=== PATIENT | female | born 1960 | race Caucasian/White ===

== ENCOUNTER → 2020-10-19 10:13 | Outpatient (BNVA) | payer OTHER, SELFPAY | PROVIDERS: PCP Internal Medicine; Visit Provider Urology | DX: N32.81 Overactive bladder (principal) | CPT/HCPCS: 51798; 81002; 99202 ==

== ENCOUNTER → 2020-11-30 12:04 | Outpatient (BNVA) | payer OTHER, SELFPAY | PROVIDERS: PCP Internal Medicine; Visit Provider Urology | DX: N32.81 Overactive bladder (principal) | CPT/HCPCS: 52000; 81002; J0585 ==

== ENCOUNTER → 2020-12-21 14:07 | Outpatient (BNVA) | payer OTHER, SELFPAY | PROVIDERS: PCP Internal Medicine; Visit Provider Urology | DX: Z09 Encounter for follow-up examination after completed treatment for conditions other than malignant neoplasm (principal); N32.81 Overactive bladder | CPT/HCPCS: 51798; 99212 ==

== ENCOUNTER → 2021-04-24 10:13 | Outpatient (BNVA) | payer OTHER, SELFPAY | PROVIDERS: PCP Internal Medicine | DX: N32.81 Overactive bladder (principal) | CPT/HCPCS: 51798; 99212 ==

== ENCOUNTER → 2021-06-12 12:47 | Outpatient (BNVA) | payer OTHER, SELFPAY | PROVIDERS: PCP Internal Medicine; Visit Provider Urology | DX: N32.81 Overactive bladder (principal) | CPT/HCPCS: 52287; J0585 ==

== ENCOUNTER → 2021-06-27 10:06 | Outpatient (BNVA) | payer OTHER, SELFPAY | PROVIDERS: PCP Internal Medicine; Visit Provider Urology | DX: N32.81 Overactive bladder (principal) | CPT/HCPCS: 51798 ==

== ENCOUNTER → 2021-11-29 10:43 | Outpatient (BNVA) | payer OTHER, SELFPAY | PROVIDERS: PCP Internal Medicine; Visit Provider Urology | DX: Z13.89 Encounter for screening for other disorder (principal) ==

== ENCOUNTER → 2022-01-31 10:50 | Outpatient (BNVA) | payer OTHER, SELFPAY | PROVIDERS: PCP Internal Medicine; Visit Provider Urology | DX: N32.81 Overactive bladder (principal) | CPT/HCPCS: 52287 ==

== ENCOUNTER → 2022-06-07 13:36 | Outpatient (BNVA) | payer OTHER, SELFPAY | PROVIDERS: PCP Internal Medicine; Visit Provider Urology | DX: N32.81 Overactive bladder (principal); N39.0 Urinary tract infection, site not specified | CPT/HCPCS: 51798; 99212 ==

== ENCOUNTER 2022-06-07 17:07 | Outpatient (REF) | payer OTHER, SELFPAY | END 2022-06-07 17:08 | disposition home or self-care (01) | LOC: HO.LNP 17:07 | PROVIDERS: Visit Provider Urology | DX: N39.0 Urinary tract infection, site not specified (principal) | CPT/HCPCS: 87086 ==

== ENCOUNTER 2022-07-19 14:49 | Outpatient (REF) | payer OTHER, SELFPAY ==
[2022-07-19 16:54] LABS: Urine Cytology See Pathology rpt
== END 2022-07-19 14:50 | disposition home or self-care (01) ==
LOC: HO.LAB 14:49
PROVIDERS: PCP Internal Medicine; Visit Provider Urology
DX: N32.81 Overactive bladder (principal); N39.0 Urinary tract infection, site not specified
CPT/HCPCS: 51701; 52000; 52287; 88112; J0585

== ENCOUNTER → 2022-08-02 10:51 | Outpatient (BNVA) | payer OTHER, SELFPAY | PROVIDERS: PCP Internal Medicine; Visit Provider Urology | DX: N32.81 Overactive bladder (principal) | CPT/HCPCS: 51798 ==

== ENCOUNTER → 2022-12-05 10:01 | Outpatient (BNVA) | payer OTHER, SELFPAY | PROVIDERS: PCP Internal Medicine; Visit Provider Urology | DX: N32.81 Overactive bladder (principal) | CPT/HCPCS: 99212 ==

== ENCOUNTER → 2023-01-15 14:36 | Outpatient (BNVA) | payer OTHER, SELFPAY | PROVIDERS: Visit Provider Urology ==

== ENCOUNTER 2023-03-19 14:20 | Outpatient (AMB) | payer OTHER, SELFPAY ==
--- NOTE | 2023-03-19 14:47 | MHC.OFFVIS ---
Intake Intake Visit Reasons: Cysto/Botox Injection Intake Note: Patient is present for Cystoscopy and Botox Injections Urology Med: Tolterodine Antibiotic Allergy:None Blood Thinner: None Pharmacy: [facility] Dis[facility] Cystoscope used during Procedure LOT#:[id number] EXP: 08/19/23 Allergies No Known Allergies Allergy (Verified 12/05/22 10:17) HPI HPI Comments History of Present Illness Details Edel is a pleasant female. She is a patient of Dr. Maldonado. She seen for the following urologic conditions - overactive bladder - recurrent UTI Plan for Botox today Tolerated well Did discuss InterStim placement She is considering this Overactive bladder Treatment with prior urologist Had trialed 2 medications - VESIcare, oxybutynin in the past with side effects Had significant side effects with dry mouth and constipation Botox administration - 2018, 12/08, 06/10, 01/09, 07/11, 03/12 [facility] Medical History Overactive bladder Review of Systems Const Denies chills and Denies fever(s) Card Reports no additional complaints and Denies syncope Resp Denies cough GI Denies abdominal pain and Denies heartburn Reports as per HPI and Denies change in libido Neuro Denies syncope Psych Denies change in libido Endo Denies change in libido Physical Exam Const General: cooperative, healthy appearing, comfortable and no acute distress Orientation/consciousness: patient oriented x3 HEENT Face and sinus: Yes normal facial exam Mouth: moist mucous membranes Neck Neck: Yes normal visual inspection, Yes full ROM and Yes trachea midline Chest Chest palpation & inspection: normal inspection of the chest Resp Effort & Inspection: normal respiratory effort, able to speak in complete sentences and no respiratory distress GI Inspection: Yes normal to inspection Back/Spine/Pelvis Cervical Spine: normal cervical lordosis Thoracic/Lumbar Spine: thoracic and lumbar spine normal to inspection Skin General skin exam: no rashes or lesions noted Neuro General: patient oriented x3, gait normal, tone normal and moves all extremities Extrem General: Yes normal to inspection and Yes capillary refill normal Office Procedures Cystoscopy Consent Discussed risk and benefit or proposed procedure with the patient. Information consent for procedure given to the patient. Discussed technical aspects, risks, benefits and alternatives in full. Addressed all of the patient's questions and concerns regarding the procedure. The patient demonstrated knowledge and understanding. They wish to proceed with this procedure. Preparation The patient was prepped in the usual manner. A certified legal investigator was present and in the room. Genitalia was prepped with betadine solution in a sterile manner. Lidocaine Jelly 2% was placed into the urethra and 16Fr flexible Olympus cystoscope was inserted into the meatus after adequate lubrication. Procedure Cystoscopy performed with 16 Bahamian cystoscope. Bladder had been prepped with lidocaine and lidocaine jelly placement 15 minutes prior to procedure. Antibiotics were administrated for 2 days prior to procedure. UA has been performed and shows no evidence of infection. Bladder was emptied of urine. Bladder was refilled. Using 100 units of Botox mixed in 10 cc of normal saline injections were placed at the back wall of the bladder. 0.5cc placed at each injection site. Injections were placed in a grid 5 across and 4 high. Injections were placed from the inferior to superior position. Trabeculations on the bladder wall were targeted if present. Procedure was tolerated well. 2 week follow-up for [place] 76358-Xgwlpnimn of non-indwelling bladder catheter 97407 - Botox Injection, urethra or bladder DISPOSABLE SCOPE URO-N NEEDLE SCOPE Procedure code (CPT) selection complete Office Meds lidocaine HCl 2 % mucosal jelly in applicator Performing Provider: Sesar Dixon MD Per[place] [facility] Administered by: Nettie Freeman RN on 03/19/23 15:04 Dose Route Admin Location Dispensed Lot Number Expiration Date [facility] Corporate Development Analyst 10 mL intra-urethral 10 mL onabotulinumtoxinA 100 unit solution for injection Performing Provider: Sesar Dixon MD Performing Location: [facility] Administered by: Nettie Freeman RN on 03/19/23 15:04 Dose Route Admin Location Dispensed Lot Number Expiration Date [place] [employer] Analyst 100 unit transurethral 1 ea Comments: administered by DR Dixon naproxen 500 mg tablet Performing Provider: Sesar Dixon MD Performing Location: [facility] Administered by: Nettie Freeman RN on 03/19/23 15:04 Dose Route Admin Location Dispensed Lot Number Expiration Date [place] [employer]st 500 mg PO 1 tab Results AMB Urinalysis, Automated UA Leukoctes 500 Fabi/uL Last Edit by IRWIN Best on 03/19/23 15:08 UA Nitrite Negative Last Edit by Hanane Severino, RMA on 03/19/23 15:08 UA Urobilinogen 0.2 mg/dL Last Edit by Hanane Severino, RMA on 03/19/23 15:08 UA Protein 15 mg/dL Last Edit by Hanane Severino, RMA on 03/19/23 15:08 UA pH 6.0 Last Edit by Hanane Severino, RMA on 03/19/23 15:08 UA Blood 25 Gallo/uL Last Edit by Hanane Severino, RMA on 03/19/23 15:08 UA Specific [place] 1.015 Last Edit by Hanane Severino, RMA on 03/19/23 15:08 UA Ketone Negative Last Edit by Hanane Severino, RMA on 03/19/23 15:08 UA Bilirubin 0 mg/dL Last Edit by Hanane Severino, RMA on 03/19/23 15:08 UA Glucose 0 mg/dL Last Edit by Hanane Severino, RMA on 03/19/23 15:08 Results Reviewed Results Reviewed: Laboratory Last Values Urine pH (Auto) 6.0 03/19/23 14:54 Specific [place] (Auto) 1.015 03/19/23 14:54 Urine Protein (Auto) 15 mg/dL 03/19/23 14:54 Glucose (UA)(Auto) 0 mg/dL 03/19/23 14:54 Urine Ketones (Auto) Negative 03/19/23 14:54 Urine Blood (Auto) 25 Gallo/uL 03/19/23 14:54 Urine Nitrite (Auto) Negative 03/19/23 14:54 Urine Bilirubin (Auto) 0 mg/dL 03/19/23 14:54 Urine Urobilinogen (Auto) 0.2 mg/dL 03/19/23 14:54 Leukocyte Esterase (Auto) 500 Fabi/uL 03/19/23 14:54 Assessment & Plan Assessment & Plan (1) Overactive bladder: Comment: Response to combination oral medications and Botox Code(s): N32.81 - Overactive bladder Plan Botox Orders: Orders AMB Cystoscopy 03/19/23 N32.81 - Overactive bladder AMB Urinalysis Automated 03/19/23 Z13.9 - Encounter for screening, unspecified Patient Instructions: Imaging studies, laboratory and physical exam results were discussed and reviewed in detail. No major barriers to patient understanding were identified. An opportunity to ask questions regarding the treatment plan was provided. All questions were answered. The patient expressed understanding and agreement with the above treatment plan. The patient is aware they should contact our office by phone for worsening of their current condition or the appearance of new urologic symptoms. Compliance is encouraged with any medications and followup testing that is ordered. It is a privilege to participate in the urologic care of your patient. If you have any questions or concerns regarding treatment for the above conditions, or other urologic issues, please do not hesitate to contact me. The office telephone contact is [phone]. This note is constructed using voice recognition software. While every effort has been made to ensure accuracy life trainer errors may have been included. Yours sincerely, Dr eSsar Dixon MD, [facility] - Urology Providers of Expert, Compassionate Care for the Genitourinary System Coding Level of Care Code Est Pt Level 3 (85439) Diagnoses Overactive bladder N32.81 CPT Codes Cystoscopy - CPT: 36565-Jzrajmfoq of non-indwelling bladder catheter ([id number]) Cystoscopy - CPT: 03707 - Botox Injection, urethra or bladder ([id number]) Cystoscopy - CPT: DISPOSABLE SCOPE URO-N NEEDLE SCOPE ([id number])
== END 2023-03-19 15:43 | disposition home or self-care (01) ==
PROVIDERS: PCP Internal Medicine; Visit Provider Urology
DX: Z13.9 Encounter for screening, unspecified (principal); N32.81 Overactive bladder
CPT/HCPCS: 52287

== ENCOUNTER → 2023-03-19 14:20 | Outpatient (BNVA) | payer OTHER, SELFPAY | PROVIDERS: PCP Internal Medicine; Visit Provider Urology | DX: N32.81 Overactive bladder (principal) | CPT/HCPCS: 52287; 81003; C1747; J0585 ==

== ENCOUNTER → 2023-04-02 08:51 | Outpatient (BNVA) | payer OTHER, SELFPAY | PROVIDERS: PCP Internal Medicine; Visit Provider Urology | DX: N32.81 Overactive bladder (principal) | CPT/HCPCS: 51798 ==

== ENCOUNTER 2023-08-15 08:56 | Outpatient (AMB) | payer OTHER, SELFPAY ==
--- NOTE | 2023-08-15 09:12 | A.OFFVIS_ITS ---
Intake Intake Visit Reasons: 4m/botox(PA Set) Intake Note: Patient is Present for Cystoscopyn with botox injections Urology Med: Tolterodine, Botox Injection 100 units Antibiotic Allergy: None Blood Thinner: None URO- N Cystoscope Injection lot: [id number] exp: 08/18/2025 Allergies No Known Allergies Allergy (Verified 12/05/22 10:17) HPI HPI Comments History of Present Illness Details Edel is a pleasant female. She is a patient of Dr. Maldonado. She seen for the following urologic conditions - overactive bladder - recurrent UTI Plan for Botox today Tolerated well Has taken antibiotics Discussed possible InterStim trial Would need to occur when Botox has tailed off Overactive bladder Treatment with prior urologist Had trialed 2 medications - VESIcare, oxybutynin in the past with side effects Had significant side effects with dry mouth and constipation Botox administration - 2018, 12/08, 06/10, 01/09, 07/11, 03/12, 08/13 [facility] Medical History Overactive bladder Review of Systems Const Denies chills and Denies fever(s) Card Reports no additional complaints and Denies syncope Resp Denies cough GI Denies abdominal pain and Denies heartburn Reports as per HPI and Denies change in libido Neuro Denies syncope Psych Denies change in libido Endo Denies change in libido Physical Exam Const General: cooperative, healthy appearing, comfortable and no acute distress Orientation/consciousness: patient oriented x3 HEENT Face and sinus: Yes normal facial exam Mouth: moist mucous membranes Neck Neck: Yes normal visual inspection, Yes full ROM and Yes trachea midline Chest Chest palpation & inspection: normal inspection of the chest Resp Effort & Inspection: normal respiratory effort, able to speak in complete sentences and no respiratory distress GI Inspection: Yes normal to inspection Back/Spine/Pelvis Cervical Spine: normal cervical lordosis Thoracic/Lumbar Spine: thoracic and lumbar spine normal to inspection Skin General skin exam: no rashes or lesions noted Neuro General: patient oriented x3, gait normal, tone normal and moves all extremities Extrem General: Yes normal to inspection and Yes capillary refill normal Office Procedures Cystoscopy Consent Discussed risk and benefit or proposed procedure with the patient. Information consent for procedure given to the patient. Discussed technical aspects, risks, benefits and alternatives in full. Addressed all of the patient's questions and concerns regarding the procedure. The patient demonstrated knowledge and understanding. They wish to proceed with this procedure. Preparation The patient was prepped in the usual manner. A strategy lead was present and in the room. Genitalia was prepped with betadine solution in a sterile manner. Lidocaine Jelly 2% was placed into the urethra and 16Fr flexible Olympus cystoscope was inserted into the meatus after adequate lubrication. Procedure Cystoscopy performed with 16 Bhutanese cystoscope. Bladder had been prepped with lidocaine and lidocaine jelly placement 15 minutes prior to procedure. Antibiotics were administrated for 2 days prior to procedure. UA has been performed and shows no evidence of infection. Bladder was emptied of urine. Bladder was refilled. Using 100 units of Botox mixed in 10 cc of normal saline injections were placed at the back wall of the bladder. 0.5cc placed at each injection site. Injections were placed in a grid 5 across and 4 high. Injections were placed from the inferior to superior position. Trabeculations on the bladder wall were targeted if present. Procedure was tolerated well. 2 week follow-up for PVR 12 fr straight cath used to drain bladder and instill 20 mls lidocaine gel, 5 mls lidocaine 2% and 20 mls bupivicaine .50 % botox instilled by Dr Dixon [id number]-Kpyakclmj of temporary indwelling bladder catheter, simple 63085-Rfcwlrkkja 31518 - Botox Injection, urethra or bladder DISPOSABLE SCOPE URO-N NEEDLE SCOPE Procedure code (CPT) selection complete Office Meds lidocaine HCl 2 % mucosal jelly in applicator Performing Provider: Sesar Dixon MD Performing Location: [facility] Administered by: Nettie Cheatham RN on 08/15/23 09:33 Dose Route Admin Location Dispensed Lot Number Expiration Date [facility] Supervisor Paint Roller Covers 10 mL intra-urethral 20 mL onabotulinumtoxinA 100 unit solution for injection Performing Provider: Sesar Dixon MD Performing Location: [facility] Administered by: Nettie Cheatham RN on 08/15/23 09:33 Dose Route Admin Location Dispensed Lot Number Expiration Date [facility] Supervisor [employer] Roller Covers 100 unit transurethral 1 ea Comments: instilled by Dr Dixon naproxen 500 mg tablet Performing Provider: Sesar Dixon MD Performing Location: [facility] Administered by: Nettie Cheatham RN on 08/15/23 09:33 Dose Route Admin Location Dispensed Lot Number Expiration Date [facility] Supervisor [employer] Rol[employer]vers 500 mg PO 1 tab Results AMB Urinalysis, Automated UA Leukoctes 500 Fabi/uL Last Edit by Hanane Severino Sarika on 08/15/23 09:38 UA Nitrite Negative Last Edit by Hanane Severino [facility] on 08/15/23 09:38 UA Urobilinogen 0.2 mg/dL Last Edit by Hanane Severino [facility] on 08/15/23 09:3 8 UA Protein 0 mg/dL Last Edit by Hanane Severino A on 08/15/23 09:38 UA pH 6.0 Last Edit by Hanane Severino [facility] on 08/15/23 09:38 UA Blood 25 Gallo/uL Last Edit by Hanane Severino [facility] on 08/15/23 09:38 UA Specific [place] 1.010 Last Edit by Hanane Severino [facility] on 08/15/23 09: 38 UA Ketone Negative Last Edit by Hanane Severino [facility] on 08/15/23 09:38 UA Bilirubin 0 mg/dL Last Edit by Hanane Severino [facility] on 08/15/23 09:38 UA Glucose 0 mg/dL Last Edit by Hanane Severino [facility] on 08/15/23 09:38 Results Reviewed Results Reviewed: Laboratory Last Values Urine pH (Auto) 6.0 08/15/23 09:23 Specific [place] (Auto) 1.010 08/15/23 09:23 Urine Protein (Auto) 0 mg/dL 08/15/23 09:23 Glucose (UA)(Auto) 0 mg/dL 08/15/23 09:23 Urine Ketones (Auto) Negative 08/15/23 09:23 Urine Blood (Auto) 25 Gallo/uL 08/15/23 09:23 Urine Nitrite (Auto) Negative 08/15/23 09:23 Urine Bilirubin (Auto) 0 mg/dL 08/15/23 09:23 Urine Urobilinogen (Auto) 0.2 mg/dL 08/15/23 09:23 Leukocyte Esterase (Auto) 500 Fabi/uL 08/15/23 09:23 Assessment & Plan Assessment & Plan (1) Overactive bladder: Comment: Response to combination oral medications and Botox Code(s): N32.81 - Overactive bladder (2) Recurrent UTI: Code(s): N39.0 - Urinary tract infection, site not specified Plan Botox completed Orders: Orders AMB Cystoscopy Today N32.81 - Overactive bladder AMB Urinalysis Automated Today Z13.9 - Encounter for screening, unspecified Patient Instructions: Imaging studies, laboratory and physical exam results were discussed and reviewed in detail. No major barriers to patient understanding were identified. An opportunity to ask questions regarding the treatment plan was provided. All questions were answered. The patient expressed understanding and agreement with the above treatment plan. The patient is aware they should contact our office by phone for worsening of their current condition or the appearance of new urologic symptoms. Compliance is encouraged with any medications and followup testing that is ordered. It is a privilege to participate in the urologic care of your patient. If you have any questions or concerns regarding treatment for the above conditions, or other urologic issues, please do not hesitate to contact me. The office telephone contact is [phone]. This note is constructed using voice recognition software. While every effort has been made to ensure accuracy yarn washer errors may have been included. Yours sincerely, Dr Sesar Dixon MD, [facility] - Urology Providers of Expert, Compassionate Care for the Genitourinary System Coding Level of Care Code Est Pt Level 3 (34576) Diagnoses Overactive bladder N32.81 Recurrent UTI N39.0 CPT Codes Cystoscopy - CPT: 12463-Gicjxiytq of temporary indwelling bladder catheter, simple ([id number]) Cystoscopy - CPT: 46310-Jybjfkcgmk ([id number]) Cystoscopy - CPT: 09122 - Botox Injection, urethra or bladder ([id number])
== END 2023-08-15 10:05 | disposition home or self-care (01) ==
PROVIDERS: PCP Internal Medicine; Visit Provider Urology
DX: N32.81 Overactive bladder (principal); N39.0 Urinary tract infection, site not specified; Z13.9 Encounter for screening, unspecified
CPT/HCPCS: 52287; 99213

== ENCOUNTER → 2023-08-15 08:56 | Outpatient (BNVA) | payer OTHER, SELFPAY | PROVIDERS: PCP Internal Medicine; Visit Provider Urology | DX: N32.81 Overactive bladder (principal); N39.0 Urinary tract infection, site not specified | CPT/HCPCS: 52287; 81003; 99212; J0585 ==

== ENCOUNTER → 2023-09-02 09:23 | Outpatient (BNVA) | payer OTHER, SELFPAY | PROVIDERS: PCP Internal Medicine; Visit Provider Urology | DX: N32.81 Overactive bladder (principal); N39.0 Urinary tract infection, site not specified | CPT/HCPCS: 51798 ==

== ENCOUNTER 2024-01-02 09:30 | Outpatient (AMB) | payer OTHER, SELFPAY ==
--- NOTE | 2024-01-02 09:50 | A.OFFVIS_ITS ---
Intake Visit Reasons: 4m s/p botox/discuss interstim Intake Note: Patient is Present for PVR/Discuss Interstim Urology Med: Tolterodine Antibiotic Allergy:None Blood Thinner:None Last Bladder Botox Injection: 07/2023 Todays PVR: 0 Patient states that she will like to dicuss Interstim plan vs Botox Injections Court Recording Monitor Required: No Allergies No Known Allergies Allergy (Verified 01/02/24 09:56) HPI Comments Details: Edel is a pleasant female. She is a patient of Dr. Maldonado. She seen for the following urologic conditions - overactive bladder - recurrent UTI Plan for Botox today Tolerated well Has taken antibiotics Discussed possible InterStim trial Would need to occur when Botox has tailed off Overactive bladder Treatment with prior urologist Had trialed 2 medications - VESIcare, oxybutynin in the past with side effects Had significant side effects with dry mouth and constipation Botox administration - 2018, 12/08, 06/10, 01/09, 07/11, 03/12, 08/13 [facility] Medical History Overactive bladder Review of Systems Const Denies chills and Denies fever(s) Card Reports no additional complaints and Denies syncope Resp Denies cough GI Denies abdominal pain and Denies heartburn Reports as per HPI and Denies change in libido Neuro Denies syncope Psych Denies change in libido Endo Denies change in libido Physical Exam Const General: cooperative, healthy appearing, comfortable and no acute distress Orientation/consciousness: patient oriented x3 HEENT Face and sinus: Yes normal facial exam Mouth: moist mucous membranes Neck Neck: Yes normal visual inspection, Yes full ROM and Yes trachea midline Chest Chest palpation & inspection: normal inspection of the chest Resp Effort & Inspection: normal respiratory effort, able to speak in complete sentences and no respiratory distress GI Inspection: Yes normal to inspection Back/Spine/Pelvis Cervical Spine: normal cervical lordosis Thoracic/Lumbar Spine: thoracic and lumbar spine normal to inspection Skin General skin exam: no rashes or lesions noted Neuro General: patient oriented x3, gait normal, tone normal and moves all extremities Extrem General: Yes normal to inspection and Yes capillary refill normal Office Procedures Post Void Residual Post Residual Void Post Void Residual (PVR): 0 95476-Eocr Void Residual by ultrasound Assessment & Plan Assessment & Plan (1) Overactive bladder: Comment: Response to combination oral medications and Botox Code(s): N32.81 - Overactive bladder Category: Medical (2) Recurrent UTI: Code(s): N39.0 - Urinary tract infection, site not specified Category: Medical Plan Risks, benefits and alternatives to therapy were discussed. These include but are not limited to infection, bleeding, damage to local organs and tissues, need for further interventions. Anesthetic risks regarding cardiac arrhythmia, blood clots, and potential mortality were discussed. The patient understands the typical recovery time and the outpatient nature of the procedure. After consideration of these risks the patient gives full informed consent and they wish to move ahead with the procedure. InterStim trial Orders: Orders AMB Post Void Residual by ultrasound Today N32.81 - Overactive bladder Patient Instructions: Imaging studies, laboratory and physical exam results were discussed and reviewed in detail. No major barriers to patient understanding were identified. An opportunity to ask questions regarding the treatment plan was provided. All questions were answered. The patient expressed understanding and agreement with the above treatment plan. The patient is aware they should contact our office by phone for worsening of their current condition or the appearance of new urologic symptoms. Compliance is encouraged with any medications and followup testing that is ordered. It is a privilege to participate in the urologic care of your patient. If you have any questions or concerns regarding treatment for the above conditions, or other urologic issues, please do not hesitate to contact me. The office telephone contact is [phone]. This note is constructed using voice recognition software. While every effort has been made to ensure accuracy bag liner errors may have been included. Yours sincerely, Dr Sesar Dixon MD, [facility] - Urology Providers of Expert, Compassionate Care for the Genitourinary System Coding Level of Care Code Est Pt Level 3 (39807) Diagnoses Overactive bladder N32.81 Recurrent UTI N39.0 CPT Codes Post Residual Void - PVR CPT Code: 00107-Zdea Void Residual by ultrasound ([id number])
== END 2024-01-02 10:47 | disposition home or self-care (01) ==
PROVIDERS: PCP Internal Medicine; Visit Provider Urology
DX: N32.81 Overactive bladder (principal); N39.0 Urinary tract infection, site not specified
CPT/HCPCS: 99213

== ENCOUNTER → 2024-01-02 09:30 | Outpatient (BNVA) | payer OTHER, SELFPAY | PROVIDERS: PCP Internal Medicine; Visit Provider Urology | DX: N32.81 Overactive bladder (principal); N39.0 Urinary tract infection, site not specified | CPT/HCPCS: 51798; 99212 ==

== ENCOUNTER 2024-03-04 12:23 | Outpatient (REF) | payer OTHER, SELFPAY ==
--- NOTE | 2024-03-04 15:04 | P.OP_ITS ---
Operative Note Operative Note Date of Service: 03/04/24 Narrative: PreOperative Diagnosis: 1) Overactive bladder with urinary urgency and frequency with incontinence (N39.41, R35.0) Post Operative Diagnosis: 1) Overactive bladder with urinary urgency and frequency with incontinence (N39.41, R35.0) Procedure: 1.) Percutaneous implantation of neurostimulator electrode array including image guidance - performed bilateral - left and right foramen Surgeon: Dr Sesar Dixon Anesthesia: Local anesthetic Indications for procedure: - Failed multiple (more than 2) anticholinergic medications in attempt to manage urinary urgency and frequency Procedure: After informed consent was verified the patient was brought to the interventional radiology suite. The patient was placed in a prone position and prepped and draped in a sterile fashion. Safety pause time-out was performed. Using the C-arm and Finder needle the S3 foramen exiting from the pelvic arch was marked horizontally from left to right as our horizontal marker. The left and right medial aspect of foramen were highlighted and aligned with the finder needle in a vertical fashion. Lines were marked. The intersection of these lines marked the entry point on the skin of the medial aspect of the left and right S3 foramen. Local anesthetic was infiltrated along the vertical aspect on both sides and through tissue to spine. The finder needle was inserted initially into the right targeted foramen. Imaging was performed in AP and lateral fashion. The needle was shown to into the S4 foramen. The needle was repositioned and entry into the right S3 foramen was confirmed. The software test developer was attached and assessed for placement with Martinez response and toe movement. The right side did show some response however at high impedance. A 2nd needle was placed for entry into the left S3 foramen. The software test developer was attached and assessed for placement with Martinez response and toe movement. Good responses were confirmed at low amperage (under 1A) on right side. A third needle was placed on left side. It entered left foramen at more vertical angle. qa lead showed good response at low amperage. Starting with the right side. The internal introducer from the needle was removed and the software test developer placed. The needle was carefully removed and imaging used to confirm good placement of software test developer. This procedure was repeated on the left side. The two test leads were then attached to the test generator and appropriate dressing was applied in order to maintain integrity for the duration of the outpatient test sequence. Leads checked in recovery. Left lead 0.4 mA and right 0.8 mA CPT 88585, plus 00221-05 for second lead placement. Inclusive of image guidance, 12732 - simple programming
== END 2024-03-04 12:24 | disposition home or self-care (01) ==
LOC: HO.RADIR 12:23
PROVIDERS: PCP Internal Medicine; Visit Provider Urology
DX: N39.41 Urge incontinence (principal); R35.0 Frequency of micturition; N32.81 Overactive bladder
CPT/HCPCS: 64561; C1787; C1897

== ENCOUNTER → 2024-03-04 12:23 | Outpatient (BNV) | payer OTHER, SELFPAY | PROVIDERS: PCP Internal Medicine; Visit Provider Urology | DX: N39.41 Urge incontinence (principal); R35.0 Frequency of micturition | CPT/HCPCS: 64561 ==

== ENCOUNTER 2024-03-11 09:44 | Outpatient (AMB) | payer OTHER, SELFPAY ==
--- NOTE | 2024-03-11 09:47 | MHC.OFFVIS ---
Intake Visit Reasons: wire removal after interstim Intake Note: Patient is present for Interstim Wire Removal Urology Med: Tolterodine Antibiotic Allergy: None Blood Thinner: none Ground Support Equipment Mechanic Required: No Accompanied by: Self / Same As Patient Allergies No Known Allergies Allergy (Verified 03/11/24 09:53) HPI Comments Details: Edel is a pleasant female. She is a patient of Dr. Maldonado. She seen for the following urologic conditions - overactive bladder - recurrent UTI Removal InterStim Trial wires new load good result Nocturia x1 Significant improvement with urgency and frequency Leads removed Discussed procedure for Friday Overactive bladder Treatment with prior urologist Had trialed 2 medications - VESIcare, oxybutynin in the past with side effects Had significant side effects with dry mouth and constipation Botox administration - 2018, 12/08, 06/10, 01/09, 07/11, 03/12, 08/13 [facility] Medical History Overactive bladder Review of Systems Const Denies chills and Denies fever(s) Card Reports no additional complaints and Denies syncope Resp Denies cough GI Denies abdominal pain and Denies heartburn Reports as per HPI and Denies change in libido Neuro Denies syncope Psych Denies change in libido Endo Denies change in libido Physical Exam Const General: cooperative, healthy appearing, comfortable and no acute distress Orientation/consciousness: patient oriented x3 HEENT Face and sinus: Yes normal facial exam Mouth: moist mucous membranes Neck Neck: Yes normal visual inspection, Yes full ROM and Yes trachea midline Chest Chest palpation & inspection: normal inspection of the chest Resp Effort & Inspection: normal respiratory effort, able to speak in complete sentences and no respiratory distress GI Inspection: Yes normal to inspection Back/Spine/Pelvis Cervical Spine: normal cervical lordosis Thoracic/Lumbar Spine: thoracic and lumbar spine normal to inspection Skin General skin exam: no rashes or lesions noted Neuro General: patient oriented x3, gait normal, tone normal and moves all extremities Extrem General: Yes normal to inspection and Yes capillary refill normal Assessment & Plan Assessment & Plan (1) Overactive bladder: Comment: Response to combination oral medications and Botox Code(s): N32.81 - Overactive bladder Category: Medical Plan Risks, benefits and alternatives to therapy were discussed. These include but are not limited to infection, bleeding, damage to local organs and tissues, need for further interventions. Anesthetic risks regarding cardiac arrhythmia, blood clots, and potential mortality were discussed. The patient understands the typical recovery time and the outpatient nature of the procedure. After consideration of these risks the patient gives full informed consent and they wish to move ahead with the procedure. InterStim full implant Patient Instructions: Imaging studies, laboratory and physical exam results were discussed and reviewed in detail. No major barriers to patient understanding were identified. An opportunity to ask questions regarding the treatment plan was provided. All questions were answered. The patient expressed understanding and agreement with the above treatment plan. The patient is aware they should contact our office by phone for worsening of their current condition or the appearance of new urologic symptoms. Compliance is encouraged with any medications and followup testing that is ordered. It is a privilege to participate in the urologic care of your patient. If you have any questions or concerns regarding treatment for the above conditions, or other urologic issues, please do not hesitate to contact me. The office telephone contact is [phone]. This note is constructed using voice recognition software. While every effort has been made to ensure accuracy dividend deposit entry clerk errors may have been included. Yours sincerely, Dr Sesar Dixon MD, [facility] - Urology Providers of Expert, Compassionate Care for the Genitourinary System Coding Level of Care Code Est Pt Level 3 (55841) Diagnoses Overactive bladder N32.81
== END 2024-03-11 10:49 | disposition home or self-care (01) ==
PROVIDERS: PCP Internal Medicine; Visit Provider Urology
DX: N32.81 Overactive bladder (principal)
CPT/HCPCS: 99024

== ENCOUNTER → 2024-03-11 09:44 | Outpatient (BNVA) | payer OTHER, SELFPAY | PROVIDERS: PCP Internal Medicine; Visit Provider Urology | DX: R35.1 Nocturia (principal); N32.81 Overactive bladder; Z45.89 Encounter for adjustment and management of other implanted devices | CPT/HCPCS: 99212 ==

== ENCOUNTER 2024-03-15 11:56 | Day surgery (SDC) | payer OTHER, SELFPAY ==
[2024-03-15 12:02] VITALS: BMI 40.0
[2024-03-15 12:28] VITALS: BP 127/86; PULSE 87; RESP 16; TEMP 36.9; O2SAT 97
[2024-03-15] MEDS: Lactated Ringers 1,000 ML 80 ML IVCONT (12:31)
--- NOTE | 2024-03-15 15:38 | P.CONAN_ITS ---
HPI - Anesthesia Eval Consult details Narrative: interstim lead test stage 1 PMFSH Active Problems Active Problems: All Active Problems Recurrent UTI (Acute) Overactive bladder (Acute) Past Medical History Medical History (Updated 03/11/24 @ 14:07 by Basia Eisenberg RN) Family hx total abdominal hysterectomy/bilateral salpingo-oophorectomy Elevated LFTs Arthritis Tobacco abuse Back pain Tonsil asymmetry Greater trochanteric bursitis CKD (chronic kidney disease) Depression Obesity GERD (gastroesophageal reflux disease) HTN (hypertension) Hypercholesteremia Overactive bladder Family History Family history of problems with anesthesia: No Surgical History Surgical History (Updated 03/11/24 @ 14:07 by Basia Eisenberg RN) Hx of tubal ligation Hx of breast surgery H/O colonoscopy History of esophagogastroduodenoscopy (EGD) History of Problems with Anesthesia: Yes (PONV) Social History Social History Patient Tobacco Use Status: Current everyday Tobacco user Cigarettes Per Day: 15 Use of substances other than those prescribed or required for medical reasons: No Have you been hit, kicked, punched, or otherwise hurt by someone within the past year? If so, by whom?: No Advance Directives: No Advance Directives Information Provided: Yes Recently lost weight without trying: No Nutrition Risks: No Nutritional Risk Meds Allergies Allergy/AdvReac Type Severity Reaction Status Date / Time No Known Allergies Allergy Verified 03/15/24 12:09 Active Medications: Current Medications Lactated Ringer's (Lr) 1,000 mls @ 80 mls/hr IVCONT .[id number] [facility] Last Admin: 03/15/24 12:31 Dose: 80 mls/hr Home Medications ?Medication ?Instructions ?Recorded ?Confirmed ?Last Taken ?Type amlodipine 5 mg tablet 5 mg PO DAILY 10/19/20 03/15/24 03/15/24 History atenolol 25 mg tablet 25 mg PO DAILY 10/19/20 03/15/24 03/15/24 History atorvastatin 20 mg tablet 20 mg PO DAILY 10/19/20 03/15/24 03/15/24 History ergocalciferol (vitamin D2) 1,250 1,250 mcg PO QWEEK 10/19/20 Unknown History mcg (50,000 unit) capsule fluticasone propionate 50 1 spray intranasal BID 10/19/20 Unknown History mcg/actuation nasal spray,suspension omeprazole 20 mg capsule,delayed 20 mg PO QAM 10/19/20 03/15/24 03/15/24 History release Exam Height,Weight and Vital Signs: Height 5 ft 3 in Weight 102.512 kg Last Vital Signs Temp 98.5 F 03/15/24 12:28 Pulse 87 03/15/24 12:28 Resp 16 03/15/24 12:28 BP 127/86 03/15/24 12:28 Pulse Ox 97 03/15/24 12:28 O2 Del Method Room Air 03/15/24 12:28 Airway Mallampati Class: II TM Dist: <=3cm Neck ROM: Full Heart: ok Lungs: ok Assessment and Plan Assessment Anesthesia Assessment: Anesthesia Plan Discussed and Chart Reviewed Final Anesthetic Review Family History of Problems with Anesthesia: No History of Problems with Anesthesia: Yes (PONV) NPO: Yes ASA Class: II Final Preanesthetic Review: No Changes in Pt Med Stat, Meds/Allgs Chart Reviewed, Consent Obtained/Reviewed and Anes Risks/Benef Reviewed Patient Risk: Intermediate Procedure Risk: Intermediate Anesthetic Plan Anesthetic Plan: MAC: and Agree w/ Assess. and Plan Disposition: Standard PACU
--- NOTE | 2024-03-15 15:53 | MHC.SHP ---
Pre-Procedural Eval Section A - 24 Hr Update-Section A only Date of Service: 03/15/24 The patient is an INPATIENT: No Changes since office visit: No Cold of Flu in the past 2 weeks, No New Medical Problems, No Changes in Medication and No Patient answered all questions The patient has been examined within 24 hours of the surgical procedure. The History & Physical has been completed within 30 days and I have reviewed it.: Yes Section B - Complete if H&P > 30 days Chief Complaint: Overactive bladder Details of Present Illness: Interstim placement lead and generator on left side Relevant Family History (Specify if Yes): No Relevant Social History: Tobacco Use Present Medications: see Short Stay Collaborative assessment Medical History: Significant History History of Previous Operations: Relevant previous surgery/procedure and date(s) Allergies: Allergies Allergy/AdvReac Type Severity Reaction Status Date / Time No Known Allergies Allergy Verified 03/15/24 12:09 Review of Systems Sugical H&P ROS: Negative: Constitution, Cardiovascular, Respiratory, Neurological, Psychiatric, Hem-Onc, Allergic/Immunologic, Gastrointestinal, Genitourinary, Musculoskeletal, Integumentary, Endocrine and Eyes/Ears/Nose/Throat Exam Surgical H&P Exam: Normal: HEENT, Normal: Heart, Normal: Lungs, Normal: Extremities, Normal: Abdomen, Normal: Skin and Normal: Neurological Plan Diagnosis/Plan: Unchanged (interstim placement) I have reviewed the history and physical and performed a pertinent physical examination on my patient. No changes have occurred unless specified. Time Spent With Patient Time: Total time managing care of this patient today ____ minutes.
--- NOTE | 2024-03-15 17:15 | W.PM.OPN ---
Operative Note Operative Note Date of Service: 03/15/24 Narrative: PreOperative Diagnosis: Overactive bladder with urinary urgency and frequency - N39.41, R35.0 Post Operative Diagnosis: Overactive bladder with urinary urgency and frequency Procedure: 1.) Placement of InterStim lead 2.) Placement of InterStim battery Surgeon: Dr Sesar Dixon Anesthesia: sedation Indications for procedure: Failed multiple oral medications and Botox. Had PNE trial of InterStim with good success. Left side was more effective. Procedure: After informed consent was verified the patient was brought to the operating room. Sedation anesthesia was administered per protocol. The patient was placed in a prone position and prepped and draped in a sterile fashion. Safety pause time-out was performed. Using the C-arm in an AP and lateral view the medial aspect of the S3 left foramen was located and marked on the skin. The medial aspect of the sacral roots was marked using the finder needle. The area was infiltrated with local anesthetic. The finding needle was introduced into the S3 foramen running from a caudad to chordal direction. Initial testing indicated minimal response. A 2nd needle was placed running in more vertical fashion. This had some response. A 3rd needle was placed in in even more vertical fashion and this had very good response to testing. Using the door to door lead generation we could confirm good toe movement and Martinez response. Maximum current was less than 1.0 amps Amp. The internal introducer from the needle was removed and the control lead placed. The finder needle was removed and the dilator sheath introduced. Under fluoroscopic guidance the dilator sheath was advanced till the marker was seen mid point through the sacral bone on the lateral image. The internal cannula from the dilator was removed. The guidewire was removed. The active lead was then introduced through the dilator sheath and advanced so that the 3rd and 4th marked electrodes crossed the internal boundary line of the sacrum. The testing electrode was then hooked up to each of the wire electrodes 0 through 3 and good Martinez and toe response is was seen at low amplitude less than 0.5 Amp for positions 0 and 1, less than 1.0 Amp for positions 2 and 3 amps. This confirmed the clinically relevant position of the live wire. Under live fluoroscopy the introducer sheath was removed deploying the tines of the wire ensuring that the live wire remained in the previously described position. The battery pocket was then created. Packet location was marked running parallel 1 inches below the top of the right sacral bone from AP fluroscopy guidance. Local anesthetic was infiltrated. A 3 inch incision was made and a subcutaneous pocket was developed in the fat approximately 1.5 cm below the surface. The tunneling device was then used to bridge the distance between the sacral vertical incision and the desired location of the battery pocket. The live wire was placed through the tunneling device and brought out into the battery pocket. The sacral incision was washed with water. A battery was connected to the live wire and placed into the subcutaneous pocket. The battery was tested and had positive picking tech and displayed normal impedance on all 4 channels. The battery pocket had been washed with sterile water prior to placement of the battery. Interrupted 3-0 Vicryl sutures were used to close the defect spaces and bring skin edges together. Running 4-0 Monocryl sutures were used to appose skin edges. Incisions were dressed using skin glue followed by Tegaderm dressing. Patient tolerated procedure well was extubated in operating room transferred in stable condition to the recovery area. CPT full device replacement 26821, 52283, 94032, 86673-49
[2024-03-15 17:20] VITALS: BP 143/102; PULSE 68; RESP 16; TEMP 36.3; O2SAT 96
[2024-03-15 17:35] VITALS: BP 139/91; PULSE 63; RESP 18; TEMP 36.3; O2SAT 97
== END 2024-03-15 17:45 | disposition home or self-care (01) ==
PROVIDERS: PCP Internal Medicine; Visit Provider Urology
PROC: (CPT 64590; principal; 2024-03-15 14:10)
DX: N32.81 Overactive bladder (principal); R39.15 Urgency of urination; R35.0 Frequency of micturition; I12.9 Hypertensive chronic kidney disease with stage 1 through stage 4 chronic kidney disease, or unspecified chronic kidney disease; F17.210 Nicotine dependence, cigarettes, uncomplicated; N18.9 Chronic kidney disease, unspecified; Z79.899 Other long term (current) drug therapy; Z98.890 Other specified postprocedural states
CPT/HCPCS: 64590; 64561; A4364; C1767; C1778; C1787; J0131; J0690; J1580; J2250; J2704; J2795; J3010

== ENCOUNTER → 2024-03-15 11:56 | Outpatient (BNV) | payer OTHER, SELFPAY | PROVIDERS: PCP Internal Medicine; Visit Provider Urology | DX: N32.81 Overactive bladder (principal) | CPT/HCPCS: 64561; 64590 ==

== ENCOUNTER 2024-03-23 10:56 | Outpatient (AMB) | payer OTHER, SELFPAY ==
--- NOTE | 2024-03-23 10:53 | A.OFFVIS_ITS ---
Intake Visit Reasons: Interstim follow up Intake Note: Patient is present for INTERSTIM F/U Urology Medication:LIDOCAINE Antibiotic Allergy:NONE Blood Thinner:NONE Manager Of Compensation Required: No Allergies No Known Allergies Allergy (Verified 03/23/24 10:54) Medication List - Last Reconciled 03/23/24 by Sesar Dixon MD amlodipine 5 mg PO DAILY atenolol 25 mg PO DAILY atorvastatin 20 mg PO DAILY ergocalciferol (vitamin D2) 1,250 mcg PO QWEEK fluticasone propionate 50 mcg/actuation 1 spray intranasal BID omeprazole 20 mg PO QAM HPI Comments Details: Edel is a pleasant female. She is a patient of Dr. Maldonado. She seen for the following urologic conditions - overactive bladder - recurrent UTI Telemedicine Evaluation 15 min Consultation NaHere Eduin Video attempted Good response to InterStim Healing well Effective control Power level 1.2 Six-month follow-up office Overactive bladder Treatment with prior urologist Had trialed 2 medications - VESIcare, oxybutynin in the past with side effects Had significant side effects with dry mouth and constipation Botox administration - 2018, 12/08, 06/10, 01/09, 07/11, 03/12, 08/13 [facility] Medical History (Updated 03/11/24 @ 14:07 by Basia Eisenberg RN) Family hx total abdominal hysterectomy/bilateral salpingo-oophorectomy Elevated LFTs Arthritis Tobacco abuse Back pain Tonsil asymmetry Greater trochanteric bursitis CKD (chronic kidney disease) Depression Obesity GERD (gastroesophageal reflux disease) HTN (hypertension) Hypercholesteremia Overactive bladder Surgical History (Updated 03/11/24 @ 14:07 by Basia Eisenberg RN) Hx of tubal ligation Hx of breast surgery H/O colonoscopy History of esophagogastroduodenoscopy (EGD) Social History Patient Tobacco Use Status: Current everyday Tobacco user Cigarettes Per Day: 15 Review of Systems Const Denies chills and Denies fever(s) Card Reports no additional complaints and Denies syncope Resp Denies cough GI Denies abdominal pain and Denies heartburn Reports as per HPI and Denies change in libido Neuro Denies syncope Psych Denies change in libido Endo Denies change in libido Physical Exam Const General: cooperative, healthy appearing, comfortable and no acute distress Orientation/consciousness: patient oriented x3 HEENT Face and sinus: Yes normal facial exam Mouth: moist mucous membranes Neck Neck: Yes normal visual inspection, Yes full ROM and Yes trachea midline Chest Chest palpation & inspection: normal inspection of the chest Resp Effort & Inspection: normal respiratory effort, able to speak in complete sentences and no respiratory distress GI Inspection: Yes normal to inspection Back/Spine/Pelvis Cervical Spine: normal cervical lordosis Thoracic/Lumbar Spine: thoracic and lumbar spine normal to inspection Skin General skin exam: no rashes or lesions noted Neuro General: patient oriented x3, gait normal, tone normal and moves all extremities Extrem General: Yes normal to inspection and Yes capillary refill normal Telehealth Telehealth Telehealth Platform: NaHere Location of provider rendering services: practice address Location of patient: address on file Patient Identification confirmed using: Name, : Yes Telehealth method: video Patient verbally consented to treatment: Yes Patient verbally consented to billing insurance company: Yes Patient informed of any privacy concerns related to visit: Yes Minutes spent on Phone/Video with Pt.: 15 Assessment & Plan Assessment & Plan (1) Recurrent UTI: Code(s): N39.0 - Urinary tract infection, site not specified Category: Medical (2) Overactive bladder: Comment: Response to combination oral medications and Botox Code(s): N32.81 - Overactive bladder Category: Medical Plan Six-month follow-up office Patient Instructions: Imaging studies, laboratory and physical exam results were discussed and reviewed in detail. No major barriers to patient understanding were identified. An opportunity to ask questions regarding the treatment plan was provided. All questions were answered. The patient expressed understanding and agreement with the above treatment plan. The patient is aware they should contact our office by phone for worsening of their current condition or the appearance of new urologic symptoms. Compliance is encouraged with any medications and followup testing that is ordered. It is a privilege to participate in the urologic care of your patient. If you have any questions or concerns regarding treatment for the above conditions, or other urologic issues, please do not hesitate to contact me. The office telephone contact is [phone]. This note is constructed using voice recognition software. While every effort has been made to ensure accuracy mechanic sound technician errors may have been included. Yours sincerely, Dr Sesar Dixon MD, [facility] - Urology Providers of Expert, Compassionate Care for the Genitourinary System Coding Level of Care Code Tele Est Pt Level 3 (07882) Diagnoses Recurrent UTI N39.0 Overactive bladder N32.81
== END 2024-03-23 11:28 | disposition home or self-care (01) ==
LOC: HO.HUSH 10:56
PROVIDERS: PCP Internal Medicine; Visit Provider Urology
DX: N39.0 Urinary tract infection, site not specified (principal); N32.81 Overactive bladder
CPT/HCPCS: 99024

== ENCOUNTER → 2024-03-23 10:56 | Outpatient (BNVA) | payer OTHER, SELFPAY | PROVIDERS: PCP Internal Medicine; Visit Provider Urology ==

== ENCOUNTER 2024-09-21 08:20 | Outpatient (AMB) | payer OTHER, SELFPAY ==
--- NOTE | 2024-09-21 08:26 | A.OFFVIS_ITS ---
Intake Visit Reasons: 6m/OAB(SET) Intake Note: Patient is present for 6 month follow up/OAB Urology Medication:LIDOCAINE Antibiotic Allergy:NONE Blood Thinner:NONE PVR: Allergies No Known Allergies Allergy (Verified 09/21/24 08:27) HPI Comments Details: Edel is a pleasant female. She is a patient of Dr. Maldonado. She seen for the following urologic conditions - overactive bladder - recurrent UTI Six-month follow-up from InterStim placement Has made slight adjustment Having some urge in the morning Discussed dietary triggers Urinary Symptoms Review - Increased urgency to urinate, noted recently. - Urgency primarily occurs in the morning or shortly after waking. - Adjusted bladder device setting up slightly which initially improved symptoms. - Informed sensation indicates device setting too high, so settings adjusted accordingly. - Evaluation showed increased frequency of urination. - Denies any notable nocturnal urgency, suggesting urinary retention overnight. - Discussion of dietary influences, such as caffeine and chocolate, on urinary symptoms. - Previous treatment with Botox was ineffective. Overactive bladder Treatment with prior urologist Had trialed 2 medications - VESIcare, oxybutynin in the past with side effects Had significant side effects with dry mouth and constipation Botox administration - 2018, 12/08, 06/10, 01/09, 07/11, 03/12, 08/13 InterStim placement 04/13 [facility] Medical History Family hx total abdominal hysterectomy/bilateral salpingo-oophorectomy Elevated LFTs Arthritis Tobacco abuse Back pain Tonsil asymmetry Greater trochanteric bursitis CKD (chronic kidney disease) Depression Obesity GERD (gastroesophageal reflux disease) HTN (hypertension) Hypercholesteremia Overactive bladder Surgical History Hx of tubal ligation Hx of breast surgery H/O colonoscopy History of esophagogastroduodenoscopy (EGD) Social History Patient Tobacco Use Status: Current everyday Tobacco user Cigarettes Per Day: 15 Review of Systems Const Denies chills and Denies fever(s) Card Reports no additional complaints and Denies syncope Resp Denies cough GI Denies abdominal pain and Denies heartburn Reports as per HPI and Denies change in libido Neuro Denies syncope Psych Denies change in libido Endo Denies change in libido Physical Exam Const General: cooperative, healthy appearing, comfortable and no acute distress Orientation/consciousness: patient oriented x3 HEENT Face and sinus: Yes normal facial exam Mouth: moist mucous membranes Neck Neck: Yes normal visual inspection, Yes full ROM and Yes trachea midline Chest Chest palpation & inspection: normal inspection of the chest Resp Effort & Inspection: normal respiratory effort, able to speak in complete sentences and no respiratory distress GI Inspection: Yes normal to inspection Back/Spine/Pelvis Cervical Spine: normal cervical lordosis Thoracic/Lumbar Spine: thoracic and lumbar spine normal to inspection Skin General skin exam: no rashes or lesions noted Neuro General: patient oriented x3, gait normal, tone normal and moves all extremities Extrem General: Yes normal to inspection and Yes capillary refill normal Results AMB Urinalysis, Automated UA Leukoctes 70 Fabi/uL Last Edit by Tiera Cheatham on 09/21/24 08:46 UA Nitrite Negative Last Edit by Tiera Cheatham on 09/21/24 08:46 UA Urobilinogen 17 mg/dL Last Edit by Tiera Cheatham on 09/21/24 08:46 UA Protein 1.0 mg/dL Last Edit by Tiera Cheatham on 09/21/24 08:46 UA pH 6.0 Last Edit by Tiera Cheatham on 09/21/24 08:46 UA Blood 0 Gallo/uL Last Edit by Tiera Cheatham on 09/21/24 08:46 UA Specific Ross 1.025 Last Edit by Tiera Cheatham on 09/21/24 08:46 UA Ketone Positive Last Edit by Tiera Cheatham on 09/21/24 08:46 UA Bilirubin 17 mg/dL Last Edit by Tiera Cheatham on 09/21/24 08:46 UA Glucose 0 mg/dL Last Edit by Tiera Cheatham on 09/21/24 08:46 Assessment & Plan Assessment & Plan (1) Overactive bladder: Comment: Response to combination oral medications and Botox Code(s): N32.81 - Overactive bladder Category: Medical (2) Recurrent UTI: Code(s): N39.0 - Urinary tract infection, site not specified Category: Medical Plan Plan Adjust bladder therapy device as comfort allows without over-sensation. Monitor symptoms and dietary impacts. Reconsider medication if symptoms persist. Follow up in six months. Educational resources provided. Discussion Notes During our discussion, we addressed Edel's previous use of Botox, which was ineffective for treating her overactive bladder. I advised on carefully adjusting her bladder device settings to ensure symptom control without discomfort. We discussed factors like diet (caffeine and chocolate) that may affect her symptoms and the absence of significant nocturnal urgency. I recommen ded observing these lifestyle aspects to potentially mitigate her urinary urgency. The patient consented to monitor symptoms for six months and assess if medication reintroduction might be warranted later. An educational resource on dietary influences on bladder health was provided, and plans for follow-up in six months with my nurse practitioner were agreed upon. Patient Instructions - Adjust the bladder device carefully to optimal comfort without sensation. - Monitor and note any changes in urinary symptoms, particularly urgency. - Consider reducing intake of caffeine and chocolate if symptoms persist. - Review educational material provided about diet and bladder health. - Plan to follow up in six months with the nurse practitioner. - Seek earlier care if significant changes or worsening of symptoms occur. Orders: Orders AMB Urinalysis Automated Today Z13.9 - Encounter for screening, unspecified Patient Instructions: This note is constructed using voice recognition software. While every effort has been made to ensure accuracy licensed home inspector errors may have been included. Imaging studies, laboratory and physical exam results were discussed and reviewed in detail. No major barriers to patient understanding were identified. An opportunity to ask questions regarding the treatment plan was provided. All questions were answered. The patient expressed understanding and agreement with the above treatment plan. The patient is aware they should contact our office by phone for worsening of their current condition or the appearance of new urologic symptoms. Compliance is encouraged with any medications and followup testing that is ordered. It is a privilege to participate in the urologic care of your patient. If you have any questions or concerns regarding treatment for the above conditions, or other urologic issues, please do not hesitate to contact me. The office telephone contact is [phone]. Sincerely, Dr Sesar Dixon MD, [facility] - Urology Compassionate Specialist Care for the Genitourinary System Coding Level of Care Code Est Pt Level 3 (56741) Diagnoses Overactive bladder N32.81 Recurrent UTI N39.0
--- OUTSIDE RECORDS SUMMARY | 2024-09-21 08:42 | XMS_ITS | Encounter Summary ---
Author Organization [employer] [place] [address] Care Team Providers Care Acquisition Analyst Name Role Phone Elvira Maldonado MD Primary Care Provider [phone] Reason for Visit * Reason Onset Date Comments Appointment 09/16/2024 1st Notification Encounter Details Date Type Department Care Team ([facility] st Contact Info) Description 09/16/2024 Telephone Lung Screening Program - [address] [place] [address] Alba Hawk MA Appointment (1st Notification) Social History Tobacco Use Types Packs/Day Years Used Date Smoking Tobacco: Every Day Cigarettes 1 45.2 Started: 1979 Smokeless Tobacco: Current Alcohol Use Standard Drinks/Week Comments Yes 0 (1 standard drink = 0.6 oz pur e alcohol) Comments No Sex and Gender Information Value Date Recorded Sex Assigned at Not on file Legal Sex Female 10:24 PM EST Gender Identity Not on file Sexual Orientation Not on file documented as of this encounter Progress Notes * Alba Hawk MA - 09/16/2024 11:43 AM EST Edel De Santiago was contacted by the Lung Cancer Screening Program today to confirm the appointment of their Lung Cancer Screening. The patient is currently scheduled to have their screening on Sunday October 06, 2024 , at 0745 AM at [facility]. New date is Tuesday October 22, 2024 at 10 AM. For all screenings scheduled during the week, the patient will check in at Patient Registration on the first floor of the main hospital. For screenings that take place on the weekend or after 5pm, check-in directly in Radiology. The patient was given the Lung Cancer Screening Program phone number, , to contact if they have any additional questions, concerns or need to reschedule. Patients are encouraged to call our office and reschedule if they are exhibiting any cold-like symptoms, have recently been treated for Pneumonia or Influenza (the flu) or have had another CT of their Chest since their last screening. documented in this encounter Plan of Treatment Upcoming Encounters Date Type Department Care Team (Late st Contact Info) Description 10/22/2024 10:00 AM EDT Appointment [facility] CT Scan [address] [place] [address] 11/17/2024 10:40 AM EDT Appointment Radiology Department - [address] [phone] 02/09/2025 8:45 AM EDT Office Visit [facility] - [address] [phone] Elvira Maldonado MD [address] [place] [address] 05/25/2025 3:15 PM EST Office Visit Nephrology - [address] [phone] Leno Lagos MD [address] [address] documented as of this encounter Visit Diagnoses Not on filedocumented in this encounter Care Teams Acquisition Analyst Relationship Specialty Start Date End Date Elvira Maldonado MD [address] [place] [address] PCP - General Internal Medicine 08/24/12 documented as of this encounter
--- OUTSIDE RECORDS SUMMARY | 2024-09-21 08:42 | XMS_ITS | Encounter Summary ---
Author Organization [facility] Address [address] [place] [address] Care Team Providers Care Dry Cleaning Checker Name Role Phone Unavailable Primary Care Provider Unavailabl e Encounter Details Date Type Department Care Team (Latest Contact Info) Description 10/10/2021 Abstract [facility] Dental, Provider, DDS Social History Tobacco Use Types Packs/Day Years Used Date Smoking Tobacco: Never Assessed Comments Unknown Sex and Gender Information Value Date Recorded Sex Assigned at Female 05/20/2022 10:17 AM EDT Legal Sex Female 10:17 AM EDT Gender Identity Female 05/20/2022 10:17 AM EDT Sexual Orientation Straight 05/20/2022 10 :17 AM EDT documented as of this encounter Plan of Treatment Upcoming Encounters Date Type Department Care Team (Late st Contact Info) Description 10/11/2024 8:00 AM EDT Office Visit [facility] ADULT DENTAL [address] [place] [address] Alex Gilmore DMD [address] [place] [address] 02/21/2025 10:00 AM EDT Office Visit [facility] ADULT DENTAL [address] [place] [address] Sarmad Howe documented as of this encounter Visit Diagnoses Not on filedocumented in this encounter
--- OUTSIDE RECORDS SUMMARY | 2024-09-21 08:42 | XMS_ITS | Clinical Summary ---
Author Organization [facility] Address [address] [place] [address] Care Team Providers Care Vp Organizational Development Name Role Phone Unavailable Primary Care Provider Unavailabl e Allergies No known active allergies Medications amLODIPine (Norvasc) 5 MG tablet Take 5 mg by mouth in the morning. 2 Active atenolol (Tenormin) 25 MG tablet Take 25 mg by mouth in the morning. 2 Active atorvastatin (Lipitor) 20 MG tablet Take 20 mg by mouth in the morning. 2 Active cholecalciferol (Vitamin D3) 25 MCG (1000 UT) tablet Take by mouth in the morning. 2 Active pantoprazole (ProtoNix) 40 MG EC tablet TAKE 1 TABLET BY MOUTH DAILY IN THE MORNING. 30 MINUTES BEFORE FOOD 2 Active PARoxetine CR (Paxil-CR) 25 MG 24 hr tablet Take 25 mg by mouth in the morning. Do not crush, chew, or split. Active ciprofloxacin (Cipro) 250 MG tablet TAKE 1 TABLET BY MOUTH ONCE DAILY X 6 DAYS STARTING 3 DAYS BEFORE PROCEDURE & CONTINUE 2 DAYS AFTER 3 Active amoxicillin-clav ulanate (Augmentin) 875-125 MG tablet TAKE 1 TABLET BY MOUTH TWICE A DAY FOR 2 WEEKS 5 Active Sodium Fluoride 1.1 % creamIndications :Secondary dental caries associated with failed or defective dental gnosticism Franc[place] teeth for 2 minutes, morning and night. Spit, do not rinse. Do not eat or drink anything for 30 minutes following use. 112 g 3 5 Active Active Problems No known active problems Encounters Date Type Department Care Team Description 08/23/2024 8:00 AM EST Office Visit [facility] ADULT DENTAL [address] [place], [place] [id number] Sarmad Howe Dental calculus (Primary Dx); Secondary dental caries associated with failed or defective dental gnosticism from Last 3 Months Social History Tobacco Use Types Packs/Day Years Used Date Smoking Tobacco: Every Day Cigarettes Smokeless Tobacco: Never Tobacco Cessation:Ready to Q uit: Not Asked; Counseling Given: Not Answered Comments Unknown Sex and Gender Information Value Date Recorded Sex Assigned at Female 05/20/2022 10:17 AM EDT Legal Sex Female 10:17 AM EDT Gender Identity Female 05/20/2022 10:17 AM EDT Sexual Orientation Straight 05/20/2022 10 :17 AM EDT Last Filed Vital Signs Vital Sign Reading Time Taken Comments Blood Pressure 122/64 08/23/2024 8:07 AM EST Pulse 68 08/23/2024 8:07 AM EST Temperature - - Respiratory Rate - - Oxygen Saturation - - Inhaled Oxygen Concentration - - Weight - - Height - - Body Mass Index - - Plan of Treatment Upcoming Encounters Date Type Department Care Team (Late st Contact Info) Description 10/11/2024 8:00 AM EDT Office Visit [facility] ADULT DENTAL [address] [place] [address] Alex Gilmore, DMD [address] [place] [address] 02/21/2025 10:00 AM EDT Office Visit [facility] ADULT DENTAL [address] [place] [address] Sarmad Howe Health Maintenance Due Date Last Done Comments CT Colonography 1960 Colonoscopy 1960 Colorectal Cancer Screening 1960 Depression Screening 1960 FIT DNA/Cologuard 1960 FIT 1960 FOBT 1960 HIV Screening 1960 Lipid Panel 1960 SDOH Screening 1960 Sigmoidoscopy 1960 Alcohol/Substance Use Screening 1972 Hepatitis C Screening 1978 Hepatitis A Vaccines (1 of 2 - Risk 2-dose series) 10/20/1979 Pneumococcal Vaccine: 50+ Years (1 of 2 - PCV) 10/20/1979 Pap Smear 1981 Cervical Cancer Screening 1990 HPV/Cotest 1990 Mammogram 2000 Hepatitis B Vaccines (1 of 3 - Risk 3-dose series) 2020 RSV Patients and Patients Aged 60 years or older (1 - Risk 60-74 years 1-dose series) 2020 Dental Oral Exam 02/21/2025 08/23/2024, 01/2023, 07/18/2022 Dental Prophylaxis 02/21/2025 08/23/2024, 0 02/02/2024, 02/24/2023, Additional history exists Tobacco Screening 08/23/2025 08/23/2024 Dental X-Ray: Bitewings 08/24/2025 08/23/19 25, 02/02/2024, 02/24/2023, Additional history exists DTaP/Tdap/Td Vaccines (2 - Td or Tdap) 10/18/2025 2015, 11/18/2007, 09/21/2007 Dental X-Ray: Full Mouth 08/24/2027 08/23/2024 Zoster Vaccines Completed 04/23/2023, 02/20/2023 Influenza Vaccine Completed 03/24/2024, , 06/06/2022, Additional history exists COVID-19 Vaccine Completed 05/07/2024, , 05/07/2022, Additional history exists HIB Vaccines Aged Out No longer eligi ble based on patient's age to complete this topic HPV Vaccines Aged Out No longer eligi ble based on patient's age to complete this topic IPV Vaccines Aged Out No longer eligi ble based on patient's age to complete this topic Meningococcal Vaccine Aged Out No fabio anabelle eligible based on patient's age to complete this topic RSV under 20 months Aged Out No longe r eligible based on patient's age to complete this topic Rotavirus Vaccines Aged Out No longer eligible based on patient's age to complete this topic Procedures Procedure Name Priority Date/Time Associated Diagnosis Comments PERIODIC ORAL EVALUATION - ESTABLISHED PATIENT Routine 08/23/2024 8:00 AM EST Secondary dental caries associated with failed or defective dental gnosticism ORAL HYGIENE INSTRUCTIONS Routine 08/23/2024 8:00 AM EST Secondary dental caries associated with failed or defective dental gnosticism INTRAORAL - COMPLETE SERIES OF RADIOGRAPHIC IMAGES Routine 08/23/2024 8:00 AM EST Secondary dental caries associated with failed or defective dental gnosticism PROPHYLAXIS - ADULT Routine 08/23/2024 8 :00 AM EST Secondary dental caries associated with failed or defective dental gnosticism CASE PRESENTATION, DETAILED AND EXTENSIVE TREATMENT PLANNING Routine 08/23/2024 8:00 AM EST Secondary dental caries associated with failed or defective dental gnosticism from Last 3 Months Insurance [facility] MEDICAID STAND ADULT
--- OUTSIDE RECORDS SUMMARY | 2024-09-21 08:42 | XMS_ITS | Encounter Summary ---
Author Organization [employer] Address [address] [facility] [address] [place] [address] Care Team Providers Care Hand Zipper Trimmer Name Role Phone Unavailable Primary Care Provider Unavailabl e Reason for Visit * Reason Comments Routine Cleaning Dental Exam Encounter Details Date Type Department Care Team ([facility] st Contact Info) Description 08/23/2024 8:00 AM EST Office Visit [facility]ULT [facility] [address] [place] [address] Sarmad Howe Dental calculus (Primary Dx); Secondary dental caries associated with failed or defective dental pentecostalism Social History Tobacco Use Types Packs/Day Years Used Date Smoking Tobacco: Every Day Cigarettes Smokeless Tobacco: Never Comments Unknown Sex and Gender Information Value Date Recorded Sex Assigned at Female 05/20/2022 10:17 AM EDT Legal Sex Female 10:17 AM EDT Gender Identity Female 05/20/2022 10:17 AM EDT Sexual Orientation Straight 05/20/2022 10 :17 AM EDT documented as of this encounter Last Filed Vital Signs Vital Sign Reading Time Taken Comments Blood Pressure 122/64 08/23/2024 8:07 AM EST Pulse 68 08/23/2024 8:07 AM EST Temperature - - Respiratory Rate - - Oxygen Saturation - - Inhaled Oxygen Concentration - - Weight - - Height - - Body Mass Index - - documented in this encounter Progress Notes * Sarmad Howe - 08/23/2024 8:00 AM EST Patient ID: Edel De Santiago is a 63 y.o. female. Time Out: Timeout Date: 08/23/24, Timeout Time: 0808 Location: [facility] Tooth: Maxilla and Mandible Procedure: Exam, X-rays, and Prophylaxis Verified the above with patient, assistant dean of students, and provider. Confirmed via patient's chart, intraorally and by radiographs. Detention Sergeant: not applicable Medical Hx: Vitals: Blood pressure 122/64, pulse 68. Medications, Med Hx reviewed with patient and updated in chart. Treatment Provided Dental procedures in this visit D1110 - PROPHYLAXIS - ADULT (Completed) Service provider: Sarmad Howe Billing provider: Alex Gilmore DMD D0210 - DIAGNOSTIC - DIAGNOSTIC IMAGING - INTRAORAL - COMPREHENSIVE SERIES OF RADIOGRAPHIC IMAGES (Completed) Service provider: Sarmad Howe Billing provider: Alex Gilmore DMD D1330 - ORAL HYGIENE INSTRUCTIONS (Completed) Service provider: Sarmad Howe Billing provider: Alex Gilmore DMD D9450 - ADJUNCTIVE GENERAL SERVICES - PROFESSIONAL VISITS - CASE PRESENTATION, SUBSEQUENT TO DETAILED AND EXTENSIVE TREATMENT PLANNING (Completed) Service provider: Sarmad Howe Billing provider: Alex Gilmore DMD Instruments Used: Ultrasonic Scalers and Prophy angle Fluoride: N/A Oral Cancer Screening: No lesions Head/Neck Exam: No Lesions Calculus: Light and Generalized Plaque: Light and Generalized Stain: Light and Localized Bleeding: Light and Localized Gingiva: Healthy and Perio Charting Completed [place]: Fair Perio Chart: Completed Oral hygiene instructions provided to patient including brushing technique and flossing. Dental exam done by . Recommendations: Ponce two times daily, modified mccall technique, Floss daily Recall Frequency: 6 mo NV: rubio #5 Hygienist: Sarmad Howe RDH * Alex Gilmore DMD - 08/23/2024 8:00 AM EST Dental procedures in this visit D1110 - PROPHYLAXIS - ADULT (Completed) Service provider: Sarmad Howe Billing provider: Alex Gilmore DMD D0210 - DIAGNOSTIC - DIAGNOSTIC IMAGING - INTRAORAL - COMPREHENSIVE SERIES OF RADIOGRAPHIC IMAGES (Completed) Service provider: Sarmad Howe Billing provider: Alex Gilmore DMD D1330 - ORAL HYGIENE INSTRUCTIONS (Completed) Service provider: Sarmad Howe Billing provider: Alex Gilmore DMD D9450 - ADJUNCTIVE GENERAL SERVICES - PROFESSIONAL VISITS - CASE PRESENTATION, SUBSEQUENT TO DETAILED AND EXTENSIVE TREATMENT PLANNING (Completed) Service provider: Sarmad Howe Billing provider: Alex Gilmore DMD D0120 - PERIODIC ORAL EVALUATION - ESTABLISHED PATIENT (Completed) Service provider: Alex Gilmore DMD Billing provider: Alex Gilmore DMD Patient ID: Edel De Santiago is a 63 y.o. female. Time Out: Timeout Date: 08/23/24, Timeout Time: 0808 Location: [facility] Tooth: all Procedure: Exam Verified the above with patient, assistant dean of students, and provider. Confirmed via patient's chart, intraorally and by radiographs. Detention Sergeant: not applicable Chief Complaint Patient presents with Routine Cleaning Dental Exam Medical Hx: Vitals: Blood pressure 122/64, pulse 68. Past Medical History: Diagnosis Date Arthritis GERD (gastroesophageal reflux disease) High cholesterol Hypertension Medications: Outpatient Encounter Medications as of 08/23/2024 Medication Sig Dispense Refill amoxicillin-clavulanate (Augmentin) 875-125 MG tablet TAKE 1 TABLET BY MOUTH TWICE A DAY FOR 2 WEEKS amLODIPine (Norvasc) 5 MG tablet Take 5 mg by mouth in the morning. atenolol (Tenormin) 25 MG tablet Take 25 mg by mouth in the morning. atorvastatin (Lipitor) 20 MG tablet Take 20 mg by mouth in the morning. cholecalciferol (Vitamin D3) 25 MCG (1000 UT) tablet Take by mouth in the morning. ciprofloxacin (Cipro) 250 MG tablet TAKE 1 TABLET BY MOUTH ONCE DAILY X 6 DAYS STARTING 3 DAYS BEFORE PROCEDURE & CONTINUE 2 DAYS AFTER pantoprazole (ProtoNix) 40 MG EC tablet TAKE 1 TABLET BY MOUTH DAILY IN THE MORNING. 30 MINUTES BEFORE FOOD PARoxetine CR (Paxil-CR) 25 MG 24 hr tablet Take 25 mg by mouth in the morning. Do not crush, chew,or split. Sodium Fluoride 1.1 % cream Ponce teeth for 2 minutes, morning and night. Spit, do not rinse. Do not eat or drink anything for 30 minutes following use. 112 g 3 No facility-administered encounter medications on file as of 08/23/2024. Objective HPI: no pain or discomfort per patient Soft Tissue Exam No findings documented this visit Head and Neck Exam: all structures examined Details: no swellings, ulcerations or lymphadenopathies OCS: negative Dental Exam Missing #1-4,12,13,15,16,18,19,20,28,30,32 #5- MO decay #6 - F5 appears to have void, recommend gingivectomy and re-eval, possibly replace rubio #10 F5 appears to have void on radiograph. Gingivectomy and re-eval, possibly replace rubio #11 - DFL recurrent decay #14 - MO recurrent decay, appears to extend to distal - cracks over marginal ridge noted. Informed pt of findings and treatment options and recommendations. Rx written for prevident and counseled pt on use. Radiographic Interpretation: Associated radiographs for today's visit were reviewed and finding(s) were discussed with the patient. Findings include: see above Hard Tissue Exam: Decay noted - see charting and treatment plan and Fractured restorations/teeth Perio Dx: Generalized Chronic Periodontitis Stage: I Grade: B Reference tooth chart for additional findings. Oral Cancer Risk: Moderate Risk Oral Hygiene Instructions: Ponce two times daily, modified mccall technique, Floss daily, Electric toothbrush, Soft bristle toothbrush, Ponce Tongue, Anti- sensitivity toothpaste, Prevident Caries Risk Assessment: High- two or more risk factors Assessment/Plan Restos Maintenance and recare Patient tolerated procedure well, all questions answered and expressed understanding. Dismissed in good condition. NV: #5,6 restos Lime Sludge Mixer: Sarmad Howe Dentist: Alex Gilmore DMD documented in this encounter Plan of Treatment Upcoming Encounters Date Type Department Care Team (Late st Contact Info) Description 10/11/2024 8:00 AM EDT Office Visit [facility] [address] [place] [address] Alex Gilmore DMD [address] [place] [address] 02/21/2025 10:00 AM EDT Office Visit [facility] [address] [place] [address] Sarmad Howe Scheduled Orders Name Type Priority Associated Diagnoses Orde r Schedule 5 MO 5 MO RESTORATIVE - RESIN-BASED COMPOSITE RESTORATIONS - DIRECT - RESIN-BASED COMPOSITE - TWO SURFACES, POSTERIOR Dental Routine 1 Occur rences starting 08/23/2024 6 F(V) 6 F(V) RESTORATIVE - RESIN-BASED COMPOSITE RESTORATIONS - DIRECT - RESIN-BASED COMPOSITE - ONE SURFACE, ANTERIOR Dental Routine 1 Occurre nces starting 08/23/2024 10 F(V) 10 F(V) RESTORATIVE - RESIN-BASED COMPOSITE RESTORATIONS - DIRECT - RESIN-BASED COMPOSITE - ONE SURFACE, ANTERIOR Dental Routine [address] arting 08/23/2024 11 DFL 11 DFL RESTORATIVE - RESIN-BASED COMPOSITE RESTORATIONS - DIRECT - RESIN-BASED COMPOSITE - THREE SURFACES, ANTERIOR Dental Routine 1 Occu rrences starting 08/23/2024 PROPHYLAXIS - ADULT Dental Routine 1 Occ urrences starting 08/23/2024 14 MOD 14 MOD RESTORATIVE - RESIN-BASED COMPOSITE RESTORATIONS - DIRECT - RESIN-BASED COMPOSITE - THREE SURFACES, POSTERIOR Dental Routine [address] arting 08/23/2024 documented as of this encounter Procedures Procedure Name Priority Date/Time Associated Diagnosis Comments PROPHYLAXIS - ADULT Routine 08/23/2024 8 :00 AM EST Secondary dental caries associated with failed or defective dental pentecostalism PERIODIC ORAL EVALUATION - ESTABLISHED PATIENT Routine 08/23/2024 8:00 AM EST Secondary dental caries associated with failed or defective dental pentecostalism ORAL HYGIENE INSTRUCTIONS Routine 08/23/2024 8:00 AM EST Secondary dental caries associated with failed or defective dental pentecostalism INTRAORAL - COMPLETE SERIES OF RADIOGRAPHIC IMAGES Routine 08/23/2024 8:00 AM EST Secondary dental caries associated with failed or defective dental pentecostalism CASE PRESENTATION, DETAILED AND EXTENSIVE TREATMENT PLANNING Routine 08/23/2024 8:00 AM EST Secondary dental caries associated with failed or defective dental pentecostalism documented in this encounter Visit Diagnoses Diagnosis Dental calculus- Primary Accretions on teeth Secondary dental caries associated with failed or defective dental pentecostalism documented in this encounter
--- OUTSIDE RECORDS SUMMARY | 2024-09-21 08:42 | XMS_ITS | Encounter Summary ---
Author Organization [facility] Address [address] [facility] [address] [place] [address] Care Team Providers Care Tow Picker Name Role Phone Unavailable Primary Care Provider Unavailabl e Encounter Details Date Type Department Care Team (Latest Contact Info) Description 01/29/2019 Abstract [facility] CONVERSIONS Dental, Provider, DDS Social History [...] Description 10/11/2024 8:00 AM EDT Office Visit [facility] [address] [place] [address] Alex Gilmore DMD [address] [place] [address] 02/21/2025 10:00 AM EDT Office Visit [facility] [address] [place] [address] Sarmad Howe documented as of this encounter Visit Diagnoses Not on filedocumented in this encounter
--- OUTSIDE RECORDS SUMMARY | 2024-09-21 08:42 | XMS_ITS | Clinical Summary ---
Author Organization [facility] [address] [facility] Address [address] [place] [address] Phone Care Team Providers Care Occupational Therapy Assist Name Role Phone Elvira Maldonado MD Primary Care Provider [phone] Allergies Active Allergy Reactions Criticality Noted Date Comments Levonorgestrel-Ethinyl Estrad Runny nose 2014 Medications atorvastatin (LIPITOR) 20 mg tablet Take 1 tablet (20 mg total) by mouth 1 (one) time each day. 12/08/19 24 Active cholecalcifero l (VITAMIN D-3) 25 mcg (1,000 unit) tablet Take 1 tablet (1,000 Units total) by mouth 1 (one) time each day. 03/13/20 22 Active pantoprazole (PROTONIX) 40 mg EC tablet TAKE 1 TABLET BY MOUTH DAILY IN THE MORNING. 30 MINUTES BEFORE FOOD 02/10/20 24 Active PARoxetine CR (PAXIL-CR) 25 mg 24 hr tablet Take 1 Tab by mouth every morning. 04/11/20 20 Active fluticasone propionate (FLONASE) 50 mcg/actuation nasal spray Administer 2 sprays into each nostril 1 (one) time each day. Shake gently. Before first use, prime pump. After use, clean tip and replace cap. 16 g 5 05/24/20 24 025 Active acetaminophen (TYLENOL) 500 mg tablet Take 1 tablet (500 mg total) by mouth every 6 (six) hours if needed. 05/06/20 24 Active fluticasone propionate (FLONASE) 50 mcg/actuation nasal spray Administer 2 sprays into each nostril 1 (one) time each day. Shake gently. Before first use, prime pump. After use, clean tip and replace cap. 16 g 5 08/03/19 25 026 Active atenoloL (TENORMIN) 25 mg tablet Take 1 tablet (25 mg total) by mouth 1 (one) time each day. 90 tablet 2 08/23/19 25 Active amLODIPine (NORVASC) 5 mg tablet Take 1 tablet (5 mg total) by mouth 1 (one) time each day. 90 tablet 2 08/23/19 25 Active amLODIPine (NORVASC) 5 mg tabletIndicati ons:hypertensi on Take 1 tablet (5 mg total) by mouth 1 (one) time each day. 11/06/19 24 025 Discontinued atenoloL (TENORMIN) 25 mg tablet Take 1 tablet (25 mg total) by mouth 1 (one) time each day. 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 Pham, 04/05/2013 DDD (degenerative disc disease), lumbar 05/27/20 22 Overview (04/29/2024): Last Assessment & Plan: Patient describes chronic low back pain that started about 13 years ago, she was told she has arthritis in her spine at that time. She states she does not have daily back pain, depends on how long she sitting or what activity she is doing. She knows if she does a lot of bending or carry something too heavy she will have back pain. She rates her back pain 3-5/10. Her main complaint is pain that radiates from her low back and right buttock to the right lateral hip and ends at the top of the mid thigh, does not radiate to the knee or lower. She has diagnosis of right hip bursitis, right knee OA, gets regular injections in the hip and knee. She states those injections do help her for a month or 2, but she still always has some level of right hip pain daily. She rates her average hip pain as 7-10/10. She states she cannot lay on her right side. In the past she has been on NSAIDs like meloxicam, which helped her. Currently she uses Motrin for pain. A few years ago she went for physical therapy for the right hip, did not keep up with the exercises at home, but plans to restart them. At the time it helped temporarily. It does not sound like she has had any injections in the lumbar spine. Patient had MRI lumbar spine 04/22/2022 at [facility] that shows L4-5 degenerative disc disease, mild to moderate neuroforaminal narrowing at this level, small left central disc herniation at T12-L1. No significant foraminal narrowing at any level, no central stenosis. I reviewed the MRI images on the computer with the patient in detail. Ms. Blankenshpi has a main complaint of right buttock and lateral hip pain that ends at the top of the mid lateral thigh, some back pain but not daily, she states her back pain is tolerable but the lateral hip pain is not. We talked about conservative treatment options like ground therapy, aquatic therapy, which patient does not want to try at this time. I will review her films with Dr. Smith, see if he recommends any neurosurgical intervention. It sounds as though her main pain is coming from her right hip bursitis, I also ordered right hip x-rays since she has not had any films of the hip, and tenderness over the SI joints. We also talked about the importance of working on quitting smoking for the long-term health of her spine. I will call her with an update after reviewing all her films with Dr. Smith. All questions answered on today's visit. She will call with any additional questions or concerns. ADDENDUM: RADEX HIP UNILATERAL WITH PELVIS 2-3 VIEWS Exam Date: 05/27/2022 11:26 AM Ordering Diagnosis: DDD (degenerative disc disease), lumbar ??History: Right hip pain. ?? AP pelvis and right hip, 2 additional views: Bony structures are radiographically intact. There are no appreciable degenerative changes. Soft tissues are unremarkable. Other structures are within normal limits. ?? IMPRESSION Normal views of the hip. Severe obesity (BMI 35.0-39.9) with comorbidity 08/11/2020 Greater trochanteric bursitis, right 01/26/2019 CKD (chronic kidney disease) stage 3, GFR 30-59 ml/min 07/24/2018 OAB (overactive bladder) 01/20/2018 Tonsil asymmetry 01/20/2018 Chronic radicular low back pain 06/25/2017 Overweight 12/31/2016 Arthritis of both hands 07/23/2016 Elevated LFTs 01/29/2016 Hepatic cyst 01/29/2016 Hypercholesteremia 04/27/2014 GERD (gastroesophageal reflux disease) 3 Overview (04/29/2024): Upper GI endoscopy was normal 03/11/2013 on PPI treatment. Encounters Date Type Department Care Team Description 09/16/2024 Telephone Lung Screening Program - [address] [phone] Alba Hawk [place] Appointment (1st Notification) 08/03/2024 8:45 AM EST Office Visit [facility] - [address] [phone] Elvira Maldonado MD Cough, unspecified type (Primary Dx); Sinus pressure; Hypercholesteremia; Primary hypertension; Smoking; Hyperglycemia 07/07/2024 11:30 AM EST Office Visit Orthopedics - [address] [phone] Gilberto Mistry PA Primary osteoarthritis of right knee (Primary Dx) from Last 3 Months Immunizations Name Administration Dates Next Due Influenza Quadravalent, MDCK , 0.5ml, preservative free (Flucelvax) 6mo and older 04/16/2023,06/06/2022,05/24/2021,2019,05/21/2019 Influenza Quadravalent, MDCK , 0.5ml, with preservative (Flucelvax) 6mo and older 04/15/2018,06/25/2017 Influenza trivalent, with preservative (Fluzone; Afluria) 6mo and older 04/19/2016,04/27/2014 Influenza, Unspecified 03/24/2024 Moderna SARS-CoV-2 COVID-19, mRNA, LNP-S, preservative free 07/26/2021 Pfizer SARS-CoV-2 COVID-19, mRNA, LNP-S, preservative free 05/07/2022 Td Tetanus diptheria (Tdvax) 7yo and older 11/18/2007,09/21/2007 Tdap Tetanus diptheria acell ular pertussis (Boostrix; Adacel) 7yo and older 2015 Zoster recombinant (Shingrix ) 19yo and older 04/23/2023 Surgical History Surgery Date Site/Laterality Comments TUBAL LIGATION PROCEDURE: HISTORICAL TUBAL LIGATION ESOPHAGOGASTRODUODENOSCOPY 2012 PROCEDURE: PA ESOPHAGOGASTRODUODENOSCOPY TRANSORAL DIAGNOSTIC; COMMENT: normal on PPI rx. HYSTERECTOMY 2012 PROCEDURE: HISTORICAL HYSTERECTOMY; COMMENT: ABIGAIL, for fibroids BREAST SURGERY 2013ish Right PROCEDURE: PA UNLISTED PROCEDURE BREAST; COMMENT: b9 Medical History Medical History Date Comments Hypertension DX:Hypertension Depression DX:Depression Leiomyoma uteri DX:Leiomyoma [place] Low back pain DX:Low back pain GERD (gastroesophageal reflux disease) 01/14/2013 DX:GERD (gastroesophageal reflux disease) Dysphagia DX:Dysphagia DDD (degenerative disc disease), lumbar DX:DDD (degenerative disc disease), lumbar Family History Medical History Relation Name Comments No Known Problems Daughter Depression Father Other: back trouble Father No Known Problems Maternal Grandfather No Known Problems Maternal Grandmother Hypertension Mother Thyroid disease Mother No Known Problems Other No Known Problems Paternal Grandfather No Known Problems Paternal Grandmother No Known Problems Sister Breast cancer Neg Hx Colon cancer Neg Hx Ovarian cancer Neg Hx Pancreatic cancer Neg Hx Prostate cancer Neg Hx Uterine cancer Neg Hx Relation Name Status Comments Daughter Father Alive Maternal Grandfather Maternal Grandmother Mother Alive Other Paternal Grandfather Paternal Grandmother Sister Social History Tobacco Use Types Packs/Day Years Used Date Smoking Tobacco: Every Day Cigarettes 1 45.2 Started: 1979 Smokeless Tobacco: Current Tobacco Cessation:Ready to Q uit: Not Asked; Counseling Given: Not Answered Alcohol Use Standard Drinks/Week Comments Yes 0 (1 standard drink = 0.6 oz pur e alcohol) Comments No Sex and Gender Information Value Date Recorded Sex Assigned at Not on file Legal Sex Female 10:24 PM EST Gender Identity Not on file Sexual Orientation Not on file Obstetrics History Last Filed Vital Signs Vital Sign Reading Time Taken Comments Blood Pressure 142/84 08/03/2024 9:11 AM EST PROVIDER TO RECHECK Pulse 54 08/03/2024 9:11 AM EST Temperature 35.8 ??C (96.4 ??F) 08/03/2024 9 :11 AM EST Respiratory Rate 24 08/03/2024 9:11 AM EST Oxygen Saturation 96% 08/03/2024 9:1 1 AM EST Inhaled Oxygen Concentration - - Weight 102 kg (225 lb) 08/03/2024 9:11 AM EST Height 160 cm (5' 3 ) 08/03/2024 9:11 AM EST Body Mass Index 39.86 08/03/2024 9:11 AM EST Plan of Treatment Upcoming Encounters Date Type Department Care Team (Late st Contact Info) Description 10/22/2024 10:00 AM EDT Appointment [facility] CT Scan [address] [place] [phone] 11/17/2024 10:40 AM EDT Appointment Radiology Department - [address] [phone] 02/09/2025 8:45 AM EDT Office Visit [facility] - [address] [phone] Elvira Maldonado MD [address] [place] [address] 05/25/2025 3:15 PM EST Office Visit Nephrology - [address] [phone] Leno Lagos MD [address] [phone] Health Maintenance Due Date Last Done Comments Hepatitis A Vaccines (1 of 2 - Risk 2-dose series) 10/20/1979 Pneumococcal Vaccine: 50+ Years (1 of 2 - PCV) 10/20/1979 Pneumococcal Vaccine: Pediatrics (0 to 5 Years) and At-Risk Patients (6 to 64 Years) (1 of 2 - PCV) 10/20/1979 Cervical Cancer Screening: Pap Smear 1981 Hepatitis B Vaccines (1 of 3 - Risk 3-dose series) 2020 RSV Immunization Patients 60+ Years Old (1 - Risk 60-74 years 1-dose series) 2020 HIV Screening 06/29/2022 Social Influencers of Health Screening 06/29/2022 Colorectal Cancer Screening: Colonoscopy 03/11/2023 03/11/2013 Hypertension/CHF/CAD Annual BMP Blood Test 09/29/2024 09/30/2023 Lung Cancer Screening (Low Dose CT) 10/05/2024 10/06/2023, 10/01/2022, 09/03/2021, Additional history exists Depression Screening 03/24/2025 03/24/2024 DTaP,Tdap,and Td Vaccines (4 - Td or Tdap) 10/18/2025 2015, 11/18/2007, 09/21/2007 Breast Cancer Screening 11/05/2025 11/06/19 24, 10/25/2022, 10/17/2021, Additional history exists Cholesterol Screening (Lipid Panel) 12/09/2028 12/10/2023, 12/10/2023 Hepatitis C Screening Completed 12/29/2015 Zoster Vaccines Completed 04/23/2023, 02/20/2023 Influenza Vaccine [...] on patient's age to complete this topic MMR Vaccines Aged Out No longer eligi ble based on patient's age to complete this topic Meningococcal ACWY Vaccine Aged Out N o longer eligible based on patient's age to complete this topic Meningococcal B Vacine Aged Out No lo nger eligible based on patient's age to complete this topic RSV Immunization Patients Under 20 months Aged Out No longer eligible based on patient's age to complete this topic Varicella Vaccines Aged Out No longer eligible based on patient's age to complete this topic Procedures Procedure Name Priority Date/Time Associated Diagnosis Comments PA ARTHROCENTESIS/ASPI RATION/INJECTION MAJOR JOINT/BURSA W/O U/S GUIDANCE Routine 07/07/2024 11:30 AM EST Primary osteoarthritis of right knee DEPRESSION SCREENING Routine 03/24/2024 LIPID PANEL Routine 12/10/2023 SCREENING MAMMOGRAPHY BI 2-VIEW BREAST INC CAD Routine 11/06/2023 10:38 AM EDT Encounter for screening mammogram for malignant neoplasm of breast CT LUNG SCREENING LOW DOSE Routine 10/06/2023 10:41 AM EDT Encounter for screening for malignant neoplasm of respiratory organs ANNUAL BMP BLOOD TEST Routine 09/30/2023 HEPATITIS C SCREENING Routine 12/29/2015 COLONOSCOPY Routine 03/11/2013 from Last 3 Months or Most Recently Relevant to Health Maintenance Results * PA ARTHROCENTESIS/ASPIRATION/INJECTION MAJOR JOINT/BURSA W/O U/S GUIDANCE (07/07/2024 11:30 AM EST) Narrative Nicholas Celaya MD - 07/07/2024 11:30 AM EST GREG Patiño ? 07/07/2024 ??1:35 PM L Inj/Asp: R knee Indications: pain Details: 22 G needle, anterolateral approach Medications: 4 mL lidocaine 1 %; 80 mg methylPREDNISolone acetate 80 mg/mL Outcome: tolerated well, no immediate complications Informed Consent: ??Site: ??Knee ??Laterality: ??Right ??Relevant images/test results available and reviewed: yes ?Health status cleared: ??Yes ??Procedure/treatment, purpose, treatment alternatives, risks/potential complications and benefits explained: yes ?Patient questions answered: yes ?Patient agrees, verbalizes understanding, and wants to proceed: yes ?Consent given by: ??Patient ??Informed consent discussion completed by Physician/EWA with patient: ?? Written; patient signed and dated; copy to patient ??Pre-procedure timeout performed: yes ?? Result [facility] Gilberto GARZA IN CLINIC/BEDSIDE ORDERABLES Fin al Result * Depression Screening (03/24/2024) Pathologist [facility] Depression Screening abstracted Historical Provider HEALTH MAINTENANCE Final Result * Lipid panel (12/10/2023) Pathologist [facility] LDL/HDL Ratio 4 0 - 4 Triglycerides 120 0 - 150 mg/dL Cholesterol 159 0 - 200 mg/dL HDL 41 >=40 mg/dL LDL Cholesterol 94 0 - 100 mg/dL Blood Venous blood specimen / Unknown Result [facility] Historical Provider LAB BLOOD ORDERABLES Nikki l Result * SCREENING MAMMOGRAPHY BI 2-VIEW BREAST INC CAD (11/06/2023 10:38 AM EDT) Anatomical Region Laterality Modality Radiographic Sarah ging 10/25/2022 10:2 7 AM EDT Narrative 11/06/2023 2:27 PM EDT This is a summary report. The complete report is available in the patient's medical record. If you cannot access the medical record, please contact the sending organization for a detailed fax or copy. Full field digital screening tomosynthesis mammography, reviewed with CAD and compared to previous mammograms dating back to 01/01/2019 with most recent of 10/17/2021. The breasts are composed of fatty and fibroglandular tissue. ??No suspicious mass, architectural distortion or suspicious calcifications are identified. ??There is a biopsy clip in the central right breast. IMPRESSION: : No mammographic evidence of malignancy. BIRADS 1-Negative; N. 5 year breast cancer risk assessment 1.3 % Lifetime breast cancer risk assessment 5.6 % Breast cancer risk category Low (<15%) Procedure Note Tish Noonan MD - 03/08/2024 This is a summary report. The complete report is available in thepatient's medical record. If you cannot access the medical record, pleasecontact the sending organization for a detailed fax or copy. Full field digital screening tomosynthesis mammography, reviewed with CADand compared to previous mammograms dating back to 01/01/2019 with mostrecent of 10/17/2021. The breasts are composed of fatty and fibroglandulartissue. No suspicious mass, architectural distortion or suspiciouscalcifications are identified. There is a biopsy clip in the centralright breast. IMPRESSION: : No mammographic evidence of malignancy. BIRADS 1-Negative; N. 5 year breast cancer risk assessment 1.3 % Lifetime breast cancer risk assessment 5.6 % Breast cancer risk category Low (<15%) us Manuela Wade MD IMG XR PROCEDURES Final Res ult * CT LUNG SCREENING LOW DOSE (10/06/2023 10:41 AM EDT) Anatomical Region Laterality Modality Computed Tomogra phy 10/05/2023 7:25 AM EDT Narrative 10/06/2023 10:41 AM EDT [facility] Diagnostic Imaging Department [address] [place] [address] Patient: ??SCOTT BLANKENSHIP ?/Age/Sex: 1960 - 62 - F Unit#: ??[id number] ? Location/Status: ??SPDICATLS/REG CLI ? Mnemonic/Ordering Site: ??CTLUNGLD/SPCT Ordering Physician: ??HERBER IBRAHIM MD CT Lung Screening Low Dose - 10/05/23729 Report Status:Signed PROCEDURE: CT chest lung cancer screening low dose examination. INDICATION: CT lung screening. ??Tobacco abuse TECHNIQUE: Chest CT without intravenous contrast was performed. ??Low-dose examination was performed. ??Reformatted images were evaluated. COMPARISON: CT chest September 2022 FINDINGS: NODULES: A 3mm nodule is noted in the periphery of the right upper lobe (series 3 image 73) that is not evident on the previous examination. ??Again noted is a benign appearing calcified nodule at the posterior left lung base. LUNGS: Minimal emphysematous changes. OTHER: Limited views of the upper abdomen appear normal. ??Mild atherosclerotic disease. ??No aneurysm. ??No significant mediastinal lymphadenopathy. ??Mild degenerative changes are noted throughout the thoracic spine. IMPRESSION: Mild emphysematous disease with a 3 mm nodule in the periphery of the right upper lobe. Lung-RADS 2. ??Follow up examination is advised in one year. Dictating Physician: ??BLANCA SAUCEDA MD Electronically Signed by: ??BLANCA SAUCEDA MD Dic Date/Time: ??10/06/23 1008 Sign date/Time: ??10/06/23 1041 Procedure Note Blanca Sauceda MD - 03/08/2024 [facility] Diagnostic Imaging Department [address] [place], [place] [id number] Patient: [id number]./Age/Sex: 1960 - 62 - F Unit#: [id number] Location/Status: SPDICATLS/REG CLI [facility]em[facility] Ordering Physician: HERBER IBRAHIM MD CT Lung Screening Low Dose - 10/05/23 - 729 Report Status:Signed PROCEDURE: CT chest lung cancer screening low dose examination. INDICATION: CT lung screening. Tobacco abuse TECHNIQUE: Chest CT without intravenous contrast was performed.Low-dose examination was performed. Reformatted images were evaluated. COMPARISON: CT chest September 2022 FINDINGS: NODULES: A 3mm nodule is noted in the periphery of the right upper lobe(series 3 image 73) that is not evident on the previous examination. Again notedis a benign appearing calcified nodule at the posterior left lung base. LUNGS: Minimal emphysematous changes. OTHER: Limited views of the upper abdomen appear normal. Mildatherosclerotic disease. No aneurysm. No significant mediastinal lymphadenopathy.Mild degenerative changes are noted throughout the thoracic spine. IMPRESSION: Mild emphysematous disease with a 3 mm nodule in the periphery of theright upper lobe. Lung-RADS 2. Follow up examination is advised in one year. Dictating Physician: BLANCA SAUCEDA MD Electronically Signed by: BLANCA SAUCEDA MD Dic Date/Time: 10/06/23 1008 Sign date/Time: 10/06/23 1041 Herber Ibrahim MD IMG CT PROCEDURES Final Result * Annual BMP Blood Test (09/30/2023) Pathologist [facility] Annual BMP Blood Test abstracted Historical Provider HEALTH MAINTENANCE Final Result * Hepatitis C Screening (12/29/2015) Pathologist [facility] Hepatitis C Screening abstracted Historical Provider HEALTH MAINTENANCE Final Result * Colonoscopy (03/11/2013) Pathologist [facility] Colonoscopy no interpretation , abstracted Anatomical Region Laterality Modality Other us Historical Provider HEALTH MAINTENANCE Final Result from Last 3 Months or Most Recently Relevant to Health Maintenance Insurance [facility] Care Teams Occupational Therapy Assist Relationship Specialty Start Date End Date Elvira Maldonado MD [address] [place] [address] PCP - General Internal Medicine 08/24/12
--- OUTSIDE RECORDS SUMMARY | 2024-09-21 08:42 | XMS_ITS | Encounter Summary ---
Author Organization [facility] Address [address] [place] [address] Care Team Providers Care Lead Cashier Name Role Phone Unavailable Primary Care Provider Unavailabl e Encounter Details Date Type Department Care Team (Latest Contact Info) Description 10/03/2020 Abstract [facility] CONVERSIONS Dental, Provider, DDS Social History Tobacco [...] Description 10/11/2024 8:00 AM EDT Office Visit [facility] [address] [place] [address] Alex Gilmore DMD [address] [place] [address] 02/21/2025 10:00 AM EDT Office Visit [facility] [address] [place] [address] Sarmad Howe documented as of this encounter Visit Diagnoses Not on filedocumented in this encounter
== END 2024-09-21 09:06 | disposition home or self-care (01) ==
PROVIDERS: PCP Internal Medicine; Visit Provider Urology
DX: N32.81 Overactive bladder (principal); N39.0 Urinary tract infection, site not specified; Z13.9 Encounter for screening, unspecified
CPT/HCPCS: 99213

== ENCOUNTER → 2024-09-21 08:20 | Outpatient (BNVA) | payer OTHER, SELFPAY | PROVIDERS: PCP Internal Medicine; Visit Provider Urology | DX: N32.81 Overactive bladder (principal); N39.0 Urinary tract infection, site not specified | CPT/HCPCS: 51798; 81003; 99212 ==

== ENCOUNTER 2025-03-24 10:34 | Outpatient (AMB) | payer OTHER, SELFPAY ==
--- NOTE | 2025-03-24 10:54 | A.OFFVIS_ITS ---
Intake Visit Reasons: 6m/PVR Intake Note: patient presents today for: 6mo/PVR urology medications: none blood thinners: none today's PVR: 0mls Front Office Administrator Required: No Accompanied by: Self / Same As Patient Allergies No Known Allergies Allergy (Verified 03/24/25 11:34) Medication List - Last Reconciled 03/24/25 by LUZ MARIA ColmenaresP- amlodipine 5 mg PO DAILY atenolol 25 mg PO DAILY atorvastatin 20 mg PO DAILY ergocalciferol (vitamin D2) 1,250 mcg PO QWEEK fluticasone propionate 50 mcg/actuation 1 spray intranasal BID omeprazole 20 mg PO QAM HPI Comments Details: Edel is a very pleasant 64-year-old female patient of Dr. Maldonado. She has a past medical history of an overactive bladder, recurrent urinary tract infections, arthritis, nicotine dependence, CKD, depression, obesity, GERD, hypertension, and hypercholesteremia. She presents to the office today for follow-up of her overactive bladder and recurrent urinary tract infections. In discussion with the patient today she reports she has recently been diagnosed with a non malignant brain tumor and is scheduled for upcoming surgery this month on the with Dr. Schumacher at [facility]. She reports feeling InterStim has been helpful with overactive bladder symptoms however she does at times continue to experience nocturia, urinary urge, and urinary frequency. She continues to limit bladder triggers and irritants as she knows these make her symptoms worse. She currently denies any UTI like symptoms. In office urinalysis results reviewed with the patient today. PVR 0 mL. She denies incontinence, hematuria, dysuria, foul smelling urine, changes to urinary stream, flank pain, fever, and or chills. She discusses at length her longstanding history of lower urinary tract symptoms and has undergone multiple management therapies to include Botox as well as oral therapies that she did not find helpful however has found InterStim to be affective. All questions were answered. She otherwise offers no other issues or concerns at this time. PREVIOUS OFFICE NOTE: Urinary Symptoms Review - Increased urgency to urinate, noted recently. - Urgency primarily occurs in the morning or shortly after waking. - Adjusted bladder device setting up slightly which initially improved symptoms. - Informed sensation indicates device setting too high, so settings adjusted accordingly. - Evaluation showed increased frequency of urination. - Denies any notable nocturnal urgency, suggesting urinary retention overnight. - Discussion of dietary influences, such as caffeine and chocolate, on urinary symptoms. - Previous treatment with Botox was ineffective. Overactive bladder Treatment with prior urologist Had trialed 2 medications - VESIcare, oxybutynin in the past with side effects Had significant side effects with dry mouth and constipation Botox administration - 2018, 12/08, 06/10, 01/09, 07/11, 03/12, 08/13 InterStim placement 04/13 [facility] Medical History Family hx total abdominal hysterectomy/bilateral salpingo-oophorectomy Elevated LFTs Arthritis Tobacco abuse Back pain Tonsil asymmetry Greater trochanteric bursitis CKD (chronic kidney disease) Depression Obesity GERD (gastroesophageal reflux disease) HTN (hypertension) Hypercholesteremia Overactive bladder Surgical History Hx of tubal ligation Hx of breast surgery H/O colonoscopy History of esophagogastroduodenoscopy (EGD) Social History Patient Tobacco Use Status: Current everyday Tobacco user Cigarettes Per Day: 15 Review of Systems Const All systems reviewed & are unremarkable except as noted in HPI and below Physical Exam Const General: cooperative, comfortable, no acute distress, well developed, alert and awake Nutritional Appearance: overweight Orientation/consciousness: patient oriented x3 Limitations: no limitations HEENT Head: Yes normal to inspection, Yes normocephalic and Yes atraumatic Ears: hearing grossly normal bilaterally Eyes General: appearance normal, both eyes and all related structures Neck Neck: Yes normal visual inspection and Yes trachea midline Chest Chest palpation & inspection: normal inspection of the chest Resp Effort & Inspection: normal respiratory effort and able to speak in complete sentences Cardio Rate: regular rate GI Inspection: Yes normal to inspection General: Yes no CVA tenderness Back/Spine/Pelvis Back: no CVA tenderness Skin General skin exam: no rashes or lesions noted Neuro General: patient oriented x3 Extrem General: Yes normal to inspection Psych Appearance: grossly normal and well kempt Mental Status: mental status grossly normal Speech and movement: Normal speech and movement present and Clear speech present Affect: normal affect Attitude: cooperative Thought process: Normal thought process present Thought content: Normal thought content present Insight: Fair insight present (Psych) Judgement: Fair judgement present (Psych) Results AMB Urinalysis, Automated UA Leukoctes 70 Fabi/uL Last Edit by BROOKLYN Gilbert on 03/24/25 11:12 UA Nitrite Negative Last Edit by BROOKLYN Gilbert on 03/24/25 11:12 UA Urobilinogen 3.5 mg/dL Last Edit by BROOKLYN Gilbert on 03/24/25 11:1 2 UA Protein 15 mg/dL Last Edit by BROOKLYN Gilbert on 03/24/25 11:12 UA pH 6.0 Last Edit by Yuly Osman CCM on 03/24/25 11:12 UA Blood 25 Gallo/uL Last Edit by BROOKLYN Gilbert on 03/24/25 11:12 UA Specific [place] 1.015 Last Edit by Yuly Osman CCM on 03/24/25 11: 12 UA Ketone Negative Last Edit by BROOKLYN Gilbert on 03/24/25 11:12 UA Bilirubin 0 mg/dL Last Edit by BROOKLYN Gilbert on 03/24/25 11:12 UA Glucose 0 mg/dL Last Edit by BROOKLYN Gilbert on 03/24/25 11:12 Results Reviewed Results Reviewed: Laboratory Last Values Urine pH (Auto) 6.0 03/24/25 11:11 Specific [place] (Auto) 1.015 03/24/25 11:11 Urine Protein (Auto) 15 mg/dL 03/24/25 11:11 Glucose (UA)(Auto) 0 mg/dL 03/24/25 11:11 Urine Ketones (Auto) Negative 03/24/25 11:11 Urine Blood (Auto) 25 Gallo/uL 03/24/25 11:11 Urine Nitrite (Auto) Negative 03/24/25 11:11 Urine Bilirubin (Auto) 0 mg/dL 03/24/25 11:11 Urine Urobilinogen (Auto) 3.5 mg/dL 03/24/25 11:11 Leukocyte Esterase (Auto) 70 Fabi/uL 03/24/25 11:11 Assessment & Plan Assessment & Plan (1) Microscopic hematuria: Code(s): R31.29 - Other microscopic hematuria Category: Medical (2) Overactive bladder: Comment: Response to combination oral medications and Botox Code(s): N32.81 - Overactive bladder Category: Medical (3) Recurrent UTI: Code(s): N39.0 - Urinary tract infection, site not specified Category: Medical (4) Nicotine dependence: Code(s): F17.200 - Nicotine dependence, unspecified, uncomplicated Category: Medical Plan In office urinalysis results reviewed with the patient today; as noted above; will send for urine cytology. PVR 0 mL Discussed bladder triggers and irritants. Will continue with current management on InterStim. Prescription provided for tolterodine as needed. She denies any UTI like symptoms. She reports be happy with current voiding parameters. Will continue with surveillance monitoring. Follow-up in 6 months with PVR; or sooner with any issues, concerns, and or questions. Orders: Orders AMB Urinalysis Automated Today Z13.9 - Encounter for screening, unspecified Urine Cytology Today F17.200 - Nicotine dependence, unspecified, uncomplicated, R31.29 - Other microscopic hematuria Patient Instructions: The patient had an opportunity to ask questions regarding the treatment plan. All questions were answered. Physical exam, labs, and imaging were discussed and reviewed in detail. As well as risks, benefits, and discussion of treatment choices. No major barriers to understanding were identified. The patient expressed understanding and agreement with the above treatment plan. The patient was made aware they should contact our office by phone for worsening of their current condition, the appearance of new symptoms, or with any questions or concerns. Compliance is encouraged with any medications and follow up testing that is ordered. It is a privilege to be allowed the opportunity to participate in? your urological care.? Again, if you have any questions or concerns If you have any questions or concerns please do not hesitate to contact me. The office is [phone]. This note is constructed using voice recognition software. While every effort has been made to ensure accuracy blooming mill supervisor errors may have been included. Yours sincerely, CHERYLE Colmenares Coding Level of Care Code Est Pt Level 3 (04376) Complex EM visit Add On G2211 Diagnoses Microscopic hematuria R31.29 Overactive bladder N32.81 Recurrent UTI N39.0 Nicotine dependence F17.200
--- OUTSIDE RECORDS SUMMARY | 2025-03-24 12:01 | XMS_ITS | Clinical Summary ---
Author Organization [facility] [address] [place] [address] Address [address] [place] [address] Phone Care Team Providers Care Food Technology Teacher Name Role Phone Elvira Maldonado MD Primary Care Provider Allergies Active Allergy Reactions Criticality Noted Date Comments Levonorgestrel-Ethinyl Estrad Runny nose 2014 Medications cholecalciferol (VITAMIN D-3) 25 mcg (1,000 unit) tablet Take 1 tablet (1,000 Units total) by mouth 1 (one) time each day. 2 Active PARoxetine CR (PAXIL-CR) 25 mg 24 hr tablet Take 1 Tab by mouth every morning. 0 Active fluticasone propionate (FLONASE) 50 mcg/actuation nasal spray Administer 2 sprays into each nostril 1 (one) time each day. Shake gently. Before first use, prime pump. After use, clean tip and replace cap. 16 g 5 4 05/24/20 25 Active acetaminophen (TYLENOL) 500 mg tablet Take 1 tablet (500 mg total) by mouth every 6 (six) hours if needed. 4 Active fluticasone propionate (FLONASE) 50 mcg/actuation nasal spray Administer 2 sprays into each nostril 1 (one) time each day. Shake gently. Before first use, prime pump. After use, clean tip and replace cap. 16 g 5 5 08/03/19 26 Active atenoloL (TENORMIN) 25 mg tablet Take 1 tablet (25 mg total) by mouth 1 (one) time each day. 90 tablet 2 5 Active amLODIPine (NORVASC) 5 mg tablet Take 1 tablet (5 mg total) by mouth 1 (one) time each day. 90 tablet 2 5 Active pantoprazole (PROTONIX) 40 mg EC tablet TAKE 1 TABLET BY MOUTH EVERY DAY 90 tablet 1 5 Active traMADoL (ULTRAM) 50 mg tablet For Hip and Back Pain 5 Active Denta 5000 Plus 1.1 % cream BRUSH TEETH FOR 2 MINUTES, MORNING AND NIGHT. SPIT, DO NOT RINSE. DO NOT EAT OR DRINK FOR 30 MINUTES 5 Active atorvastatin (LIPITOR) 20 mg tablet TAKE 1 TABLET BY MOUTH EVERY DAY 90 tablet 1 5 Active Active Problems Problem Noted Date Diagnosed Date [...] Patient had MRI lumbar spine 04/22/2022 at [facility] that shows L4-5 degenerative disc disease, mild to moderate neuroforaminal narrowing at this level, small left central disc herniation at T12-L1. No significant foraminal narrowing at any level, no central stenosis. I reviewed the MRI images on the computer with the patient in detail. Ms. Blankenship has a main complaint of right buttock [...] Ordering Diagnosis: DDD (degenerative disc disease), lumbar History: Right hip pain. AP pelvis and right hip, 2 additional views: Bony structures are radiographically intact. There are no appreciable degenerative changes. Soft tissues are unremarkable. Other structures are within normal limits. IMPRESSION Normal views of the hip. Severe obesity (BMI 35.0-39. 9) with comorbidity ([facility] V24, [facility] V28) 08/11/2020 Greater trochanteric bursitis, right 01/26/2019 CKD (chronic kidney disease) stage 3, GFR 30-59 ml/min ([facility] [place], [facility] V28) 07/24/2018 OAB (overactive bladder) 01/20/2018 Tonsil asymmetry 01/20/2018 Chronic radicular low back pain 06/25/2017 Overweight 12/31/2016 Arthritis of both hands 07/23/2016 Elevated LFTs 01/29/2016 Hepatic cyst 01/29/2016 Hypercholesteremia 04/27/2014 GERD (gastroesophageal reflux disease) 3 Overview (04/29/2024): Upper GI endoscopy was normal 03/11/2013 on PPI treatment. Encounters Date Type Department Care Team Description 02/28/2025 10:00 AM EDT Office Visit Adult Medicine [address] [phone] lEvira Maldonado MD Benign neoplasm of brain, unspecified brain region ([facility] [place], [facility] V28) (Primary Dx); Anxiety state; Nonintractable headache, unspecified chronicity pattern, unspecified headache type 02/28/2025 8:58 AM EDT - 02/28/2025 11:59 PM EDT Hospital Encounter CT Scan - [address] [phone] Tension headache Discharge Disposition: Home or Self Care 02/09/2025 9:45 AM EDT Office Visit Orthopedics - [address] [phone] Gilberto Mistry PA Primary osteoarthritis of right knee (Primary Dx) 02/09/2025 8:45 AM EDT Office Visit Adult Medicine [address] [phone] Elvira Maldondao MD Tension headache (Primary Dx); Stage 3a chronic kidney disease ([facility], [facility] V28); Primary hypertension; Smoker; Hypercholesteremia; Hyperglycemia from Last 3 Months Immunizations Name Administration [...] PROCEDURE: HISTORICAL TUBAL LIGATION ESOPHAGOGASTRODUODENOSCOPY 2012 PROCEDURE: IL ESOPHAGOGASTRODUODENOSCOPY TRANSORAL DIAGNOSTIC; COMMENT: normal on PPI rx. HYSTERECTOMY 2012 PROCEDURE: HISTORICAL HYSTERECTOMY; COMMENT: ABIGAIL, for fibroids BREAST SURGERY 2013ish Right PROCEDURE: IL UNLISTED PROCEDURE BREAST; COMMENT: b9 STEREOTACTIC CORE BIOPSY 07/21/2014 - 07/20/2015 Right neg Medical History Medical History Date Comments Hypertension DX:Hypertension Depression DX:Depression Leiomyoma uteri DX:Leiomyoma chava ri Low back pain DX:Low back pain [...] Date Smoking Tobacco: Every Day Cigarettes 1 45.7 Started: 1979 Smokeless Tobacco: Current Tobacco Cessation:Ready to Q uit: Not Asked; Counseling Given: Not Answered Alcohol Use Standard Drinks/Week Comments Yes 0 (1 standard drink = 0.6 oz pur e alcohol) Comments No Sex and Gender Information Value Date Recorded Sex Assigned at Female 10/21/2024 9:46 AM EDT Legal Sex Female 10:24 PM EST Gender Identity Female 10/21/2024 9:46 AM EDT Sexual Orientation Not on file Obstetrics History Para Term AB IAB SAB Ectopic Multiple Livin g Live Births 1 Date Outcome GA Total Labor Labor/2nd/3rd Weight Sex Type Anes PTL Amelia A1 A5 Name Clin Term Last Filed Vital Signs Vital Sign Reading Time Taken Comments Blood Pressure 124/74 02/28/2025 9:46 AM EDT Pulse 68 02/28/2025 9:46 AM EDT Temperature 36.5 C (97.7 F) 02/28/2025 9:46 AM EDT Respiratory Rate 16 02/28/2025 9:46 AM EDT Oxygen Saturation 96% 08/03/2024 9:11 AM EST Inhaled Oxygen Concentration - - Weight 101 kg (223 lb) 02/28/2025 9:46 AM EDT Height 160 cm (5' 3 ) 02/28/2025 9:46 AM EDT Body Mass Index 39.5 02/28/2025 9:46 AM EDT Plan of Treatment Upcoming Encounters Date Type Department Care Team (Late st Contact Info) Description 05/25/2025 3:15 PM EST Office Visit Nephrology - [address] [phone] Leno Lagos MD [address] [facility] [address] [place] [address] 11/23/2025 10:40 AM EDT Appointment Radiology Department - [address] [phone] Health Maintenance Due Date Last Done Comments Pneumococcal Vaccine: 50+ Years (1 of 2 - PCV) 10/20/1979 Cervical Cancer Screening: Pap Smear 1981 RSV Immunization Adult Patients (1 - Risk 60-74 years 1-dose series) 2020 HIV Screening 06/29/2022 Social Influencers of Health Screening 06/29/2022 Colorectal Cancer Screening: Colonoscopy 03/11/2023 03/11/2013 Depression Screening 07/21/2024 03/24/2024 Hypertension/CHF/CAD Annual BMP Blood Test 09/29/2024 09/30/2023 COVID-19 Vaccine (7 - Moderna risk 2023- season) 2025 05/07/2024, 05/14/2023, 05/07/2022, Additional history exists Influenza Vaccine (#1) 2025 , 04/16/2023, 06/06/2022, Additional history exists DTaP,Tdap,and Td Vaccines (4 - Td or Tdap) 10/18/2025 2015, 11/18/2007, 09/21/2007 Lung Cancer Screening (Low Dose CT) 10/22/2025 10/22/2024, 10/06/2023, 10/01/2022, Additional history exists Breast Cancer Screening 11/17/2026 11/18/19, 11/06/2023, 10/25/2022, Additional history exists Cholesterol Screening (Lipid Panel) 02/04/2030 02/04/2025, 12/10/2023, 12/10/2023 Hepatitis C Screening Completed 12/29/2015 Zoster Vaccines Completed 04/23/2023, 02/20/2023 HIB Vaccines Aged Out No longer eligi ble based on patient's age to complete this topic HPV Vaccines Aged Out No longer eligi ble based on patient's age to complete this topic Hepatitis A Vaccines Aged Out No long er eligible based on patient's age to complete this topic Hepatitis B Vaccines Aged Out No long er eligible based on patient's age to complete this topic IPV Vaccines Aged Out No longer eligi ble based on patient's age to complete this topic MMR Vaccines Aged Out No longer eligi ble based on patient's age to complete this topic Meningococcal ACWY Vaccine Aged Out N o longer eligible based on patient's age to complete this topic Meningococcal B Vaccine Aged Out No l onger eligible based on patient's age to complete this topic RSV Immunization Patients Under 20 months Aged Out No longer eligible based on patient's age to complete this topic Varicella Vaccines Aged Out No longer eligible based on patient's age to complete this topic Procedures Procedure Name Priority Date/Time Associated Diagnosis Comments CT HEAD WO CONTRAST Routine 02/28/2025 9 :16 AM EDT Tension headache IL ARTHROCENTESIS/ASPI RATION/INJECTION MAJOR JOINT/BURSA W/O U/S GUIDANCE Routine 02/09/2025 9:45 AM EDT Primary osteoarthritis of right knee LIPID PANEL WITH REFLEX TO DIRECT LDL Routine 02/04/2025 8:27 AM EDT Hypercholesteremia HEMOGLOBIN A1C Routine 02/04/2025 8:27 AM EDT Hyperglycemia HEPATIC FUNCTION PANEL Routine 02/04/2025 8:27 AM EDT Hypercholesteremia MG MAMMO DIGITAL SCREENING W MUSA BILAT Routine 11/17/2024 11:00 AM EDT Encounter for screening mammogram for breast cancer CT LUNG SCREENING Routine 10/22/2024 9:4 3 AM EDT Encounter for screening for malignant neoplasm of respiratory organs Nicotine dependence, cigarettes, uncomplicated DEPRESSION SCREENING Routine 03/24/2024 ANNUAL BMP BLOOD TEST Routine 09/30/2023 HEPATITIS C SCREENING Routine 12/29/2015 COLONOSCOPY Routine 03/11/2013 from Last 3 Months or Most Recently Relevant to Health Maintenance Results * CT Head wo Contrast (02/28/2025 9:16 AM EDT) Anatomical Region Laterality Modality Head and Neck Computed Tomogra phy 02/28/2025 9:21 AM EDT Narrative 02/28/2025 9:[address] without intravenous contrast. History headaches. Examination was performed on 1.5 Gabi magnet without administration of intravenous contrast. No previous studies are available for comparison. There is a 3.9 x 3.3 x 3.4 cm rounded meningeal-based partially calcified mass in the left paramedian aspect of the posterior fossa. There is edema in the surrounding brain tissue. There is compression of the left aspect of the fourth ventricle and effacement of the basal cisterns. There is dilatation of the lateral ventricles. There are hypodensities in the periventricular white matter of both cerebral hemispheres which could be due to transependymal flow. Visualized paranasal sinuses and mastoid processes are unremarkable. CONCLUSIONS: Large partially calcified meningeal-based mass in the left paracentral posterior fossa causing partial compression of the fourth ventricle, effacement of the basal cisterns and hydrocephalus, most likely due to a meningioma. Secure message was sent to the provider at the time of dictation. -------- FINAL REPORT -------- Dictated By: Hannah Sanders Dictated Date: 02/28/2025 09:21 ET Assigned Physician: Hannah Sanders Reviewed and Electronically Signed By: Hannah Sanders Signed Date: 02/28/2025 09:31 ET Workstation ID: [id number] Transcribed By: Self Edit Transcribed Date: 02/28/2025 09:21 ET Procedure Note Hannah Sanders MD - 02/28/[address] without intravenous contrast. History headaches. Examination was performed on 1.5 Gabi magnet without administration ofintravenous contrast. No previous studies are available for comparison. There is a 3.9 x 3.3 x 3.4 cm rounded meningeal-based partially calcifiedmass in the left paramedian aspect of the posterior fossa. There is edemain the surrounding brain tissue. There is compression of the left aspectof the fourth ventricle and effacement of the basal cisterns. There isdilatation of the lateral ventricles. There are hypodensities in theperiventricular white matter of both cerebral hemispheres which could bedue to transependymal flow. Visualized paranasal sinuses and mastoidprocesses are unremarkable. CONCLUSIONS: Large partially calcified meningeal-based mass in the leftparacentral posterior fossa causing partial compression of the fourthventricle, effacement of the basal cisterns and hydrocephalus, most likelydue to a meningioma. Secure message was sent to the provider at the timeof dictation. -------- FINAL REPORT -------- Dictated By: Hannah Sanders Dictated Date: 02/28/2025 09:21 ET Assigned Physician: Hannah Sanders Reviewed and Electronically Signed By: Hannah Sanders Signed Date: 02/28/2025 09:31 ET Workstation ID: [id number] Transcribed By: Self Edit Transcribed Date: 02/28/2025 09:21 ET us Elvira Maldonado MD IMG CT PROCEDURES Final Result * IL ARTHROCENTESIS/ASPIRATION/INJECTION MAJOR JOINT/BURSA W/O U/S GUIDANCE (02/09/2025 9:45 AM EDT) Gilberto Kemp PA - 02/09/2025 9:45 AM EDT GREG Patiño 02/09/2025 10:08 AM L Inj/Asp: R knee Indications: pain Details: 22 G needle, anterolateral approach Medications: 4 mL lidocaine 1 %; 80 mg methylPREDNISolone acetate 80 mg/mL Informed Consent: Site: Knee Laterality: Right Relevant images/test results available and reviewed: yes Health status cleared: Yes Procedure/treatment, purpose, treatment alternatives, risks/potential complications and benefits explained: yes Risk/complications/benefits details: Risks include but are not limited to: The treatment may not accomplish the desired results. Additionally bleeding, infection, damage to tendon, nerve, cartilage, muscle; thinning or lightening of the skin in the area of injection; flushing or redness of the face, elevated blood pressure or blood sugar, allergic reaction, rash, increased pain Benefits include relief of inflammation and pain Patient questions answered: yes Patient agrees, verbalizes understanding, and wants to proceed: yes Consent given by: Patient Informed consent discussion completed by Physician/EWA with patient: Verbal Pre-procedure timeout performed: yes us Gilberto GARZA IN CLINIC/BEDSIDE ORDERABLES Fin al Result * (ABNORMAL) Lipid panel with reflex to direct LDL (02/04/2025 8:27 AM EDT) Cholesterol 161 0 - 200 mg/dL LAB CHEMISTRY METHOD 02/04/2025 11:05 AM EDT [facility] Triglycerides 182(H) 0 - 150 mg/dL LAB CHEMISTRY METHOD 02/04/2025 11:05 AM EDT [facility] HDL 37(L) >=40 mg/dL LAB CHEMISTRY METHOD 02/04/2025 11:05 AM EDT [facility] LDL Calculated 88 0 - 100 mg/dL LAB CHEMISTRY METHOD 02/04/2025 11:[facility] VLDL Cholesterol Romeo 36.4 mg/dL LAB CHEMISTRY METHOD 02/04/2025 11:05 AM EDT [facility] Non HDL Chol. (LDL+VLDL) 124 <145 mg/dL LAB CHEMISTRY METHOD 02/04/2025 11:05 AM EDT [facility] Chol/HDL Ratio 4.4 0.0 - 4.4 LAB CHEMISTRY METHOD 02/04/2025 11:05 AM [facility] Blood Venous blood specimen / Unknown Venipuncture / Unknown 02/04/2025 8:27 AM EDT 02/04/2025 8:27 AM EDT us Elvira Maldonado MD LAB BLOOD ORDERABLES Final Resul t [facility] [address] [place] [address], * Hemoglobin A1c (02/04/2025 8:27 AM EDT) Hemoglobin A1C 5.8 <6.5 % LAB CHEMISTRY METHOD 02/04/2025 1:42 PM EDT [facility] Mean Bld Glu Estim. 120 mg/dL LAB CHEMISTRY METHOD 02/04/2025 1:42 PM T [facility] Blood Venous blood specimen / Unknown Venipuncture / Unknown 02/04/2025 8:27 AM EDT 02/04/2025 8:27 AM EDT us Elvira Maldonado MD LAB BLOOD ORDERABLES Final Resul t [facility] [address] [place] [address], * Hepatic function panel (02/04/2025 8:27 AM EDT) Total Protein 6.3 6.0 - 8.0 g/dL LAB CHEMISTRY METHOD 02/04/2025 11:05 AM [facility] Albumin 3.8 3.2 - 5.0 g/dL LAB CHEMISTRY METHOD 02/04/2025 11:05 AM [facility] Total Bilirubin 0.7 0.0 - 1.4 mg/dL LAB CHEMISTRY METHOD 02/04/2025 11:05 AM [facility] Bilirubin, Direct 0.1 0.0 - 0.3 mg/dL LAB CHEMISTRY METHOD 02/04/2025 11:05 AM [facility] Bilirubin, Indirect 0.6 0.0 - 1.1 mg/dL LAB CHEMISTRY METHOD 02/04/2025 11:05 AM [facility] ALT (SGPT) 39 10 - 60 unit/L LAB CHEMISTRY METHOD 02/04/2025 11:05 AM [facility] AST (SGOT) 17 10 - 42 unit/L LAB CHEMISTRY METHOD 02/04/2025 11:05 AM [facility] Alkaline Phosphatase 95 42 - 121 unit/L LAB CHEMISTRY METHOD 02/04/2025 11:05 AM [facility] Blood Venous blood specimen / Unknown Venipuncture / Unknown 02/04/2025 8:27 AM EDT 02/04/2025 8:27 AM EDT us Elvira Maldonado MD LAB BLOOD ORDERABLES Final Resul t [facility] [address] [place] [address], [place] [phone] * MG Mammo Digital Screening w Musa bilat (11/17/2024 11:00 AM EDT) Anatomical Region Laterality Modality Breast Bilateral Mammography 11/17/2024 6:16 PM EDT Impressions 11/17/2024 6:18 PM EDT No mammographic evidence of malignancy. BREAST DENSITY: B - There are scattered areas of fibroglandular density. BI-RADS CATEGORY: 1 - NEGATIVE RECOMMENDATION: Screening bilateral mammogram is recommended in 1 year. MAMMO LOCATION: [facility], [address] [place] [address], [id number], . -------- FINAL REPORT -------- Dictated By: Liliana Zambrano Dictated Date: 11/17/2024 18:16 ET Assigned Physician: Liliana Zambrano Reviewed and Electronically Signed By: Liliana Zambrano Signed Date: 11/17/2024 18:18 ET Workstation ID: [id number] Transcribed By: Self Edit Transcribed Date: 11/17/2024 18:16 ET Narrative 11/17/2024 6:18 PM EDT EXAM: Screening Mammogram CLINICAL: 64 years old, Female, routine annual exam. History of a benign right stereotactic core biopsy in 2013. COMPARISON: 11/06/2023 and as far back as 10/11/2020 TECHNIQUE: Bilateral MLO and CC views were obtained digitally with 3-D mammogram (digital breast tomosynthesis). Computer-aided detection was utilized in evaluation of this exam (CAD). FINDINGS: No new suspicious mass, architectural distortion, or suspicious calcifications. Biopsy clip again noted in the central right breast. Procedure Note Liliana Zambrano MD - 11/17/2024 EXAM: Screening Mammogram CLINICAL: 64 years old, Female, routine annual exam. History of a benignright stereotactic core biopsy in 2013. COMPARISON: 11/06/2023 and as far back as 10/11/2020 TECHNIQUE: Bilateral MLO and CC views were obtained digitally with 3-Dmammogram (digital breast tomosynthesis). Computer-aided detection wasutilized in evaluation of this exam (CAD). FINDINGS: No new suspicious mass, architectural distortion, or suspiciouscalcifications. Biopsy clip again noted in the central right breast. IMPRESSION: No mammographic evidence of malignancy. BREAST DENSITY: B - There are scattered areas of fibroglandular density. BI-RADS CATEGORY: 1 - NEGATIVE RECOMMENDATION: Screening bilateral mammogram is recommended in 1 year. MAMMO LOCATION: [facility], [address] [place] [address], [id number], . -------- FINAL REPORT -------- Dictated By: Liliana Zambrano Dictated Date: 11/17/2024 18:16 ET Assigned Physician: Liliana Zambrano Reviewed and Electronically Signed By: Liliana Zambrano Signed Date: 11/17/2024 18:18 ET Workstation ID: [id number] Transcribed By: Self Edit Transcribed Date: 11/17/2024 18:16 ET Elvira Maldonado MD IMG BI PROCEDURES Final Result * CT Lung Screening (10/22/2024 9:43 AM EDT) Anatomical Region Laterality Modality Chest Computed Tomogra phy 10/26/2024 2:35 PM EDT Impressions 10/26/2024 2:52 PM EDT 1. LUNG-RADS category 2: Benign findings without evidence of primary lung cancer. 2. LUNG-RADS category S: Negative, no new/unknown potentially significant incidental findings requiring urgent additional evaluation. 3. Other incidental findings as above. RECOMMENDATION: Continued routine annual LDCT lung screening. Suggest next exam on or around 10/26/2025. -------- FINAL REPORT -------- Dictated By: Jocelyn Murphy Dictated Date: 10/26/2024 14:35 ET Assigned Physician: Jocelyn Murphy Reviewed and Electronically Signed By: Jocelyn Murphy Signed Date: 10/26/2024 14:52 ET Workstation ID: [id number] Transcribed By: Self Edit Transcribed Date: 10/26/2024 14:35 ET Narrative 10/26/2024 2:[address] CHEST WITHOUT CONTRAST FOR LUNG CANCER SCREENING INDICATION: Lung cancer screening 20 pack-years TECHNIQUE: Helical, low dose CT (LDCT) of the chest was performed without intravenous contrast. Additional maximal intensity projection images COMPARISON: Lung screening from 10/05/2023 FINDINGS: Lung Screening Specific: 2 mm solid nodule within the right upper lobe (series 3, image 100). 1 mm solid nodule within the right (series 3, image 108). Lung parenchyma: No focal consolidation or effusion. Mild diffuse peribronchial wall thickening. Mediastinum: Heart is within normal limits for size without pericardial effusion. Mild atherosclerosis of the thoracic aorta. Upper abdomen: Right hepatic lobe 1.5 cm cyst. MSK: Mild degenerative changes of the thoracic spine Procedure Note Jocelyn Murphy MD - 10/26/2024 CT CHEST WITHOUT CONTRAST FOR LUNG CANCER SCREENING INDICATION: Lung cancer screening 20 pack-years TECHNIQUE: Helical, low dose CT (LDCT) of the chest was performed withoutintravenous contrast. Additional maximal intensity projection images COMPARISON: Lung screening from 10/05/2023 FINDINGS: Lung Screening Specific: 2 mm solid nodule within the right upper lobe(series 3, image 100). 1 mm solid nodule within the right (series 3,image 108). Lung parenchyma: No focal consolidation or effusion. Mild diffuse peribronchial wallthickening. Mediastinum: Heart is within normal limits for size without pericardialeffusion. Mild atherosclerosis of the thoracic aorta. Upper abdomen: Right hepatic lobe 1.5 cm cyst. MSK: Mild degenerative changes of the thoracic spine IMPRESSION: 1. LUNG-RADS category 2: Benign findings without evidence of primary lungcancer. 2. LUNG-RADS category S: Negative, no new/unknown potentially significantincidental findings requiring urgent additional evaluation. 3. Other incidental findings as above. RECOMMENDATION: Continued routine annual LDCT lung screening. Suggest nextexam on or around 10/26/2025. -------- FINAL REPORT -------- Dictated By: Jocelyn Murphy Dictated Date: 10/26/2024 14:35 ET Assigned Physician: Jocelyn Murphy Reviewed and Electronically Signed By: Jocelyn Murphy Signed Date: 10/26/2024 14:52 ET Workstation ID: [id number] Transcribed By: Self Edit Transcribed Date: 10/26/2024 14:35 ET Amita Zamora MD IMG CT PROCEDURES Final Result * Depression Screening (03/24/2024) [facility] Depression Screening abstracted Result [facility] Historical Provider HEALTH MAINTENANCE Final Result * Annual BMP Blood Test (09/30/2023) [facility] Annual BMP Blood Test abstracted [facility] Provider HEALTH MAINTENANCE Final Result * Hepatitis C Screening (12/29/2015) [facility] Hepatitis C Screening abstracted Historical Provider HEALTH MAINTENANCE Final Result * Colonoscopy (03/11/2013) [facility] Colonoscopy no interpretation , abstracted Anatomical Region Laterality Modality Other Historical Provider HEALTH MAINTENANCE Final Result from Last 3 Months or Most Recently Relevant to Health Maintenance Insurance [facility] [employer] Care Teams Food Technology Teacher Relationship Specialty Start Date End Date Elvira Maldonado MD [address] [place] [address] PCP - General Internal Medicine 08/24/12
--- OUTSIDE RECORDS SUMMARY | 2025-03-24 12:01 | XMS_ITS | Encounter Summary ---
Author Organization [employer] [facility] Address [address] [place] [address] Care Team Providers Care Raw Finish Mill Operator Name Role Phone Unavailable Primary Care Provider Unavailabl e Encounter Details Date Type Department Care Team (Latest Contact Info) Description 10/10/2021 Abstract [facility] CONVERSIONS Dental, Provider, DDS Social [...] Care Team (Late st Contact Info) Description 08/29/2025 10:00 AM EST Office Visit [facility] ADULT DENTAL [address] [place] [address] Sarmad Howe documented as of this encounter Visit Diagnoses Not on filedocumented in this encounter
--- OUTSIDE RECORDS SUMMARY | 2025-03-24 12:01 | XMS_ITS | Clinical Summary ---
Author Organization [employer] Address [address] [place] [address] Care Team Providers Care Electromechanical Equipment Assembler Name Role Phone Unavailable Primary Care Provider [...] & CONTINUE 2 DAYS AFTER 3 Active amoxicillin-clavul anate (Augmentin) 875-125 MG tablet TAKE 1 TABLET BY MOUTH TWICE A DAY FOR 2 WEEKS 5 Active Sodium Fluoride 1.1 % creamIndications:S econdary dental caries associated with failed or defective dental yazidism [place] teeth for 2 minutes, morning and night. Spit, do not rinse. Do not eat or drink anything for 30 minutes following use. 112 g 3 [address] [facility] [address] 500 MG tablet TAKE 2 TABLETS BY MOUTH 3 TIMES A DAY NEEDED Active fluticasone (Flonase) 50 MCG/ACT nasal spray SPRAY 2 SPRAYS INTO EACH NOSTRIL EVERY DAY SHAKE GENTLY. CLEAN TIP AND REPLACE CAP AFTER USE. Active traMADol (Ultram) 50 MG tablet For Hip and Back Pain 5 Active Active Problems Problem Noted Date Diagnosed Date Dysphagia 04/29/2024 DDD (degenerative disc disease), lumbar 05/27/20 22 Overview (10/11/2024): Last Assessment & Plan: Patient describes chronic [...] Patient had MRI lumbar spine 04/22/2022 at [facility] that shows L4-5 degenerative disc disease, mild to moderate neuroforaminal narrowing at this level, small left central disc herniation at T12-L1. No significant foraminal narrowing at any level, no central stenosis. I reviewed the MRI images on the computer with the patient in detail. Ms. 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 Pham, 04/05/2013 Backache 09/16/2011 Depression 09/16/2011 GERD (gastroesophageal reflux disease) 2 Overview (10/11/2024): Upper GI endoscopy was normal 03/11/2013 on PPI treatment. Encounters Date Type Department Care Team Description 02/21/2025 10:00 AM EDT Office Visit [facility] ADULT DENTAL [address] [place] [address] Sarmad Howe Dental calculus (Primary Dx) 01/17/2025 10:30 AM EDT Office Visit [facility] ADULT DENTAL [address] [place] [address] Alex Gilmore, NICHO Secondary dental caries associated with failed or defective dental yazidism (Primary Dx); Dental caries 12/23/2024 10:00 AM EDT Office Visit [facility] ADULT DENTAL [address] [place] [address] Alex Gilmore, DMD Secondary dental caries associated with failed or defective dental yazidism (Primary Dx) from Last 3 Months Social History Tobacco [...] Sign Reading Time Taken Comments Blood Pressure 128/68 02/21/2025 10:10 AM EDT Pulse 75 02/21/2025 10:10 AM EDT Temperature - - Respiratory Rate - - Oxygen Saturation - - Inhaled Oxygen Concentration - - Weight - - Height - - Body Mass Index - - Plan of Treatment Upcoming Encounters Date Type Department Care Team (Late st Contact Info) Description 08/29/2025 10:00 AM EST Office Visit [facility] ADULT DENTAL [address] [place] [address] Sarmad Howe Health Maintenance Due Date Last Done Comments CT Colonography 1960 Colonoscopy 1960 Colorectal Cancer Screening 1960 Depression Screening 1960 FIT DNA/Cologuard 1960 FIT 1960 FOBT 1960 HIV Screening 1960 Lipid Panel 1960 SDOH Screening 1960 Sigmoidoscopy 1960 Disability Screening 1960 Alcohol/Substance Use Screening 1972 Hepatitis C Screening 1978 Hepatitis A Vaccines (1 of 2 - Risk 2-dose series) 10/20/1979 Pneumococcal Vaccine: 50+ Years (1 of 2 - PCV) 10/20/1979 Pap Smear 1981 Cervical Cancer Screening 1990 HPV/Cotest 1990 Hepatitis B Vaccines (1 of 3 - Risk 3-dose series) 2020 RSV Patients and Patients Aged 60 years or older (1 - Risk 60-74 years 1-dose series) 2020 Influenza Vaccine (#1) 2025 , 04/16/2023, 06/06/2022, Additional history exists Dental X-Ray: Bitewings 08/24/2025 08/23/19, 02/02/2024, 02/24/2023, Additional history exists Dental Oral Exam 08/25/2025 02/21/2025, 09/2024, 02/24/2023, Additional history exists Dental Prophylaxis 08/25/2025 02/21/2025, 0 08/23/2024, 02/02/2024, Additional history exists DTaP/Tdap/Td Vaccines (2 - Td or Tdap) 10/18/2025 2015, 11/18/2007, 09/21/2007 Tobacco Screening 02/21/2026 02/21/2025 Mammogram 11/17/2026 11/17/2024, 11/17/2024 Dental X-Ray: Full Mouth 08/24/2027 08/23/2024 Zoster Vaccines Completed 04/23/2023, 02/20/2023 COVID-19 Vaccine Completed 05/07/2024, , 05/07/2022, Additional [...] Procedure Name Priority Date/Time Associated Diagnosis Comments COMPREHENSIVE PERIODONTAL EVALUATION - NEW OR ESTABLISHED PATIENT Routine 02/21/2025 10:00 AM EDT PERIODIC ORAL EVALUATION - ESTABLISHED PATIENT Routine 02/21/2025 10:00 AM EDT CASE PRESENTATION, DETAILED AND EXTENSIVE TREATMENT PLANNING Routine 02/21/2025 10:00 AM EDT ORAL HYGIENE INSTRUCTIONS Routine 2024 10:00 AM EDT PROPHYLAXIS - ADULT Routine 02/21/2025 1 0:00 AM EDT CASE PRESENTATION, DETAILED AND EXTENSIVE TREATMENT PLANNING Routine 01/17/2025 10:30 AM EDT Secondary dental caries associated with failed or defective dental yazidism Dental caries 6 F(V) RESIN-BASED COMPOSITE - 1 SURF, ANTERIOR Routine 01/17/2025 10:30 AM EDT Secondary dental caries associated with failed or defective dental yazidism 5 MO RESIN-BASED COMPOSITE - 2 SURF, POSTERIOR Routine 01/17/2025 10:30 AM EDT Dental caries CASE PRESENTATION, DETAILED AND EXTENSIVE TREATMENT PLANNING Routine 12/23/2024 10:00 AM EDT Secondary dental caries associated with failed or defective dental yazidism 14 MOD RESIN-BASED COMPOSITE - 3 SURF, POSTERIOR Routine 12/23/2024 10:00 AM EDT Secondary dental caries associated with failed or defective dental yazidism INTRAORAL - COMPLETE SERIES OF RADIOGRAPHIC IMAGES Routine 08/23/2024 8:00 AM EST Secondary dental caries associated with failed or defective dental yazidism from Last 3 Months or Most Recently Relevant to Health Maintenance [facility]
--- OUTSIDE RECORDS SUMMARY | 2025-03-24 12:01 | XMS_ITS | Encounter Summary ---
Author Organization [employer] [facility] Address [address] [place] [address] Care Team Providers Care Spool Salvager Name Role Phone Unavailable Primary Care Provider Unavailabl e Encounter Details Date Type Department Care Team (Latest Contact Info) Description 01/29/2019 Abstract [facility] CONVERSIONS Dental, Provider, DDS Social History [...] Description 08/29/2025 10:00 AM EST Office Visit [facility] CHC ADULT DENTAL [address] [place] [address] Sarmad Howe documented as of this encounter Visit Diagnoses Not on filedocumented in this encounter
--- OUTSIDE RECORDS SUMMARY | 2025-03-24 12:01 | XMS_ITS | Encounter Summary ---
Author Organization [employer] [facility] Address [address] [facility] [address] [place] [address] Care Team Providers Care Blindstitch Hemmer Name Role Phone Unavailable Primary Care Provider Unavailabl e Encounter Details Date Type Department Care Team (Latest Contact Info) Description 10/03/2020 Abstract [facility] CONVERSIONS Dental, Provider, DDS Social History [...] Description 08/29/2025 10:00 AM EST Office Visit [facility] CH[facility] ADULT DENTAL [address] [place] [address] Sarmad Howe documented as of this encounter Visit Diagnoses Not on filedocumented in this encounter
--- OUTSIDE RECORDS SUMMARY | 2025-03-24 12:01 | XMS_ITS ---
Author Name [facility] Organization Unknown Care Team Organization Name Specialty Phone Email Start Date End Da te [facility] 05/28/2022 03/08/2024
== END 2025-03-24 11:36 | disposition home or self-care (01) ==
LOC: HO.HUSH 10:35
PROVIDERS: PCP Internal Medicine; Visit Provider Nurse Practitioner Family
DX: R31.29 Other microscopic hematuria (principal); N32.81 Overactive bladder; N39.0 Urinary tract infection, site not specified; F17.200 Nicotine dependence, unspecified, uncomplicated; Z13.9 Encounter for screening, unspecified
CPT/HCPCS: 99213

== ENCOUNTER 2025-03-24 10:34 | Outpatient (REF) | payer OTHER, SELFPAY | END 2025-03-24 10:35 | disposition home or self-care (01) | LOC: HO.LAB 10:34 | PROVIDERS: PCP Internal Medicine; Visit Provider Nurse Practitioner Family | DX: N32.81 Overactive bladder (principal); R31.29 Other microscopic hematuria; N39.0 Urinary tract infection, site not specified; F17.200 Nicotine dependence, unspecified, uncomplicated; Z13.89 Encounter for screening for other disorder; Z98.51 Tubal ligation status | CPT/HCPCS: 81003; 88112; 99212 ==